=== PATIENT | male | born 1935 | race Caucasian/White ===

== ENCOUNTER 2016-04-16 09:41 | Emergency (ER) | payer MEDICARE, OTHER ==
[~2016-04-16] VITALS: Ht 144.8 cm; Wt 53.0 kg
[~2016-04-16 09:41] MED LIST: AMLO-147 PO; ASPI-664 PO; DIPH1TAB25 PO; DONE5TAB7 PO; ESOM40CA PO; FER325 PO; FOLI-49 PO; IMO2 PO; NEPH PO; RIFA550T4 PO; SITA50TA2 PO
[2016-04-16 10:06] VITALS: Ht 144.8 cm; Wt 53.0 kg
[2016-04-16] MEDS ORDERED: ONDANSETRON (ODT) 4 MG TAB ODT STA (10:29)
[2016-04-16] MEDS ORDERED: HYDROCODONE/APAP (10/325) TAB PO ONE (10:30)
[2016-04-16] MEDS ORDERED: DOCU-144 PO (11:38)
[2016-04-16] MEDS ORDERED: HYDR-902 PO (11:38)
--- NOTE | 2016-04-16 11:44 | RADRPT ---
PROCEDURE: XR Lumbar Spine. CLINICAL INDICATION: Low back pain. TECHNIQUE: 3 views of the lumbar spine are available for review COMPARISON: None available FINDINGS: There is diffuse osteopenia. There is a mild dextroscoliosis of the lumbar spine. There is an indete rminate age compression involving the superior endplate of L1. There is severe L4-5 and mild L1-4 degenerative disk disease. This is associated with disk space n arrowing, endplate sclerosis and spondylosis. The vertebral bodies are otherwise normal in minerali zation, architecture and alignment. No subluxation is demonstrated. The facet joints are unremarka ble. There is abdominal aortic vascular calcification. IMPRESSION: Diffuse osteopenia Mild dextroscoliosis. Indeterminate age compression involving the superior endplate of L1 Severe L4-5 and mild L1-4 degenerative disk disease. RPTAT: HGDB .Ariel Méndez MD, Date Time Electronically viewed and signed by .Ariel Méndez MD, on 04/16/2016 11:43 .B/
[2016-04-16 12:43] VITALS: BP 128/83; PULSE 78; RESP 18; TEMP 97.5
--- NOTE | 2016-04-16 14:44 | ERD ---
ER Documentation Chief Complaint Date/Time DATE: 04/16/16 TIME: 14:42 Chief Complaint Complains of back pain Hx of Dialysis HPI Patient is an 80-year-old male with stroke, hypertension, and diabetes who presents with back pain. The patient has had diffuse back pain for the past 3 weeks. It has lower back pain bilaterally. He has tried ibuprofen by Dr. Pepper. He had diarrhea. He has had incontinence for the past 2 years and there is been no changes. He denies fever. Upon review of old medical records this is the patient's sixth visit to the ER since 2014. He receives dialysis Wednesday, Wednesday, and Wednesday and had a full dialysis yesterday. ROS All systems reviewed and are negative except as per history of present illness. Medications Home Meds Active Scripts Docusate Sodium* (Colace*) 100 Mg Capsule, 100 MG PO TID, #30 CAP Prov:KIKI CAMPBELL MD 04/16/16 Hydrocodone/Acetaminophen ([place] 10-325 Tablet) 1 Each Tablet, 1 TAB PO Q6H Y for PAIN, #7 TAB Prov:KIKI CAMPBELL MD 04/16/16 Diphenoxylate HCl/Atropine (Diphenoxylate-Atrop 2.5-0.025) 1 Each Tablet, 1 TAB PO DAILY, #90 TAB Prov:BERT LIRIANO MD 02/01/16 Rifaximin* (Xifaxan*) 550 Mg Tablet, 550 MG PO BID, #60 TAB Prov:BERT LIRIANO MD 02/01/16 Reported Medications Multivit/Ca Carb/B Cmplx/Fa* (Estelita-Allison*) 1 Tab Tab, 1 TAB PO DAILY, TAB 01/28/16 Ferrous Sulfate* (Ferrous Sulfate*) 325 Mg Tabec, 325 MG PO BID, TAB 01/28/16 Sitagliptin* (Januvia*) 50 Mg Tablet, 50 MG PO DAILY, #30 TAB 01/28/16 Loperamide Hcl* (Loperamide Hcl*) 2 Mg Cap, 2 MG PO DAILY, CAP 01/28/16 Folic Acid* (Folic Acid*) 1 Mg Tablet, 1 MG PO DAILY, TAB 01/28/16 Esomeprazole Mag Trihydrate (Nexium) 40 Mg Capsule.dr, 40 MG PO DAILY, #30 CAP 01/28/16 Donepezil* (Donepezil*) 5 Mg Tablet, 5 MG PO DAILY, #30 TAB 01/28/16 Aspirin* (Aspirin* EC) 81 Mg Tablet.dr, 81 MG PO DAILY, TAB 01/28/16 Amlodipine Besylate* (Amlodipine Besylate*) 10 Mg Tablet, 10 MG PO DAILY, #30 TAB 01/28/16 Allergies Allergies: Coded Allergies: No Known Allergy (Verified , 01/28/16) PMhx/Soc History of Surgery: Yes (cataract surgery,right chest wall permacath) Anesthesia Reaction: No Hx Neurological Disorder: No Hx Respiratory Disorders: No Hx Cardiac Disorders: Yes (HTN, high cholesterol) Hx Psychiatric Problems: No Hx Miscellaneous Medical Probl: Yes (DM II) Hx Alcohol Use: No Hx Substance Use: No Hx Tobacco Use: Yes (30 years ago) Smoking Status: Never smoker FmHx Family History: diabetes Physical Exam Vitals Vital Signs Date Time Temp Pulse Resp B/P Pulse Ox O2 Delivery O2 Flow Rate FiO2 04/16/16 12:43 97.5 78 18 128/83 98 Room Air 04/16/16 10:06 97.5 86 20 124/84 98 Physical Exam Const: Mild distress secondary to back pain Head: Atraumatic Eyes: Normal Conjunctiva ENT: Normal External Ears, Nose and Mouth. Neck: Full range of motion..~ No meningismus. Resp: Clear to auscultation bilaterally Cardio: Regular rate and rhythm, no murmurs Abd: Soft, non tender, non distended. Normal bowel sounds Skin: No petechiae or rashes Back: No midline or flank tenderness Ext: No cyanosis, or edema Neur: Awake and alert Psych: Normal Mood and Affect Results 24 hrs Current Medications Medications (Trade) Dose Ordered Sig/Xin Route PRN Reason Start Time Stop Time Status Last Admin Dose Admin Acetaminophen/ Hydrocodone Bitart ([place] (10/325)) 1 tab ONCE ONCE PO 04/16/16 10:30 04/16/16 10:43 DC 04/16/16 10:49 Ondansetron HCl (Zofran Odt) 4 mg ONCE STAT ODT 04/16/16 10:29 04/16/16 10:43 DC 04/16/16 10:50 Procedures/MDM X-ray LS-Spine 3V Interpreted by me: Bones: No fracture, or lytic lesions, there is diffuse osteopenia Joints: No dislocation Foreign body: None Patient is an 80-year-old male who presents with back pain. At this point I doubt cauda equina syndrome, epidural abscess, or epidural hematoma. I believe outpatient management is appropriate. The patient will need to follow-up closely with Dr. Pepper. The patient was given [place] for pain and will be given a prescription for [place] and Colace. Departure Diagnosis: Primary Impression: Back pain Back pain location: low back pain Chronicity: acute Back pain laterality: bilateral Sciatica presence: without sciatica Qualified Code: M54.5 - Acute bilateral low back pain without sciatica Condition: Fair Patient Instructions: Back Pain (Acute Or Chronic) Referrals: BERT LIRIANO MD (PCP) Additional Instructions: Llame al doctor CÉSAR y sena sherry RONY PARA DENTRO DE 1-2 CAMPOS.Dgale a la secretaria que nosotros le instruimos hacer esta rony.Avise o llame si berumen condicin se empeora antes de la rony. Regresa aqui si peor o no mejor. KIKI CAMPBELL MD Apr 16, 2016 14:44
== END 2016-04-16 12:43 | disposition home or self-care (01) ==
LOC: E/R 09:41
DX: M54.5 Low back pain (principal); I10 Essential (primary) hypertension; E11.9 Type 2 diabetes mellitus without complications; Z79.84 Long term (current) use of oral hypoglycemic drugs; Z79.82 Long term (current) use of aspirin; Z87.891 Personal history of nicotine dependence
CPT/HCPCS: 72100; 93005

== ENCOUNTER 2016-05-21 11:15 | Emergency (ER) | payer MEDICARE, OTHER ==
[~2016-05-21] VITALS: Wt 60.0 kg
[~2016-05-21 11:15] MED LIST changes: +DOCU-144 PO; +HYDR-902 PO
[2016-05-21 13:10] LABS: ADD SCAN DIFF NO
[2016-05-21 13:13] LABS: BASOPHILS % 0.5 % (0.0-2.0); EOSINOPHILS # 0.3 10^3/ul (0.0-0.5); EOSINOPHILS % 3.7 % (0.0-7.0); HEMATOCRIT 32.3 % (42.0-52.0); HEMOGLOBIN 10.9 g/dl (14.0-18.0); LYMPHOCYTES # 1.5 10^3/ul (0.8-2.9); LYMPHOCYTES % 20.3 % (15.0-51.0); MEAN CORPUSCULAR HEMOGLOBIN 32.8 pg (29.0-33.0); MEAN CORPUSCULAR HGB CONC 33.7 g/dl (32.0-37.0); MEAN CORPUSCULAR VOLUME 97.3 fl (82.0-101.0); MEAN PLATELET VOLUME 10.6 fl (7.4-10.4); MONOCYTE # 0.6 10^3/ul (0.3-0.9); PLATELET COUNT 109 10^3/UL (140-415); RED BLOOD COUNT 3.32 10^6/ul (4.70-6.10); RED CELL DISTRIBUTION WIDTH 16.2 % (11.5-14.5); WHITE BLOOD COUNT 7.5 10^3/ul (4.8-10.8)
[2016-05-21 13:24] LABS: ALBUMIN 3.8 g/dl (3.3-4.9); CHLORIDE 103 mmol/L (97-110)
[2016-05-21 13:25] LABS: POTASSIUM 5.6 mmol/L (3.5-5.1); SODIUM 144 mmol/L (135-144)
[2016-05-21 13:26] LABS: INR 1.26; PROTIME 15.9 Sec (12.2-14.2); PT RATIO 1.2
[2016-05-21 13:27] LABS: ANION GAP 35 (8-16); ASPARTATE AMINO TRANSFERASE 14 IU/L (15-46); BLOOD UREA NITROGEN 93 mg/dl (7-20); CARBON DIOXIDE 12 mmol/L (21-31)
[2016-05-21 13:28] LABS: ALANINE AMINOTRANSFERASE 16 IU/L (13-69); ALKALINE PHOSPHATASE 177 IU/L (42-121); CALCIUM 7.5 mg/dl (8.4-10.2); GLUCOSE 139 mg/dl (70-220)
[2016-05-21 13:42] LABS: CREATININE 14.83 mg/dl (0.61-1.24); TROPONIN-I < 0.012 ng/ml (0.00-0.12)
[2016-05-21] MEDS ORDERED: CA GLUCONATE (GM) 10% 10ML INJ IV STA ×3 (14:13→15:27)
[2016-05-21] MEDS ORDERED: NA BICARBONATE 8.4% 50 ML SYG IV STA (14:13)
[2016-05-21] MEDS ORDERED: morphine 2 MG INJ IV ONE (14:30)
--- NOTE | 2016-05-21 14:42 | RADRPT ---
PROCEDURE: XR Chest. CLINICAL INDICATION: Chest pain TECHNIQUE: Chest AP portable. COMPARISON: 01/28/2016 FINDINGS: Left internal jugular tunnel dialysis catheter. The mediastinal structures are unremarkable. There is calcification of the thoracic aorta (consiste nt with atherosclerosis). There is mild cardiomegaly. The pulmonary vascularity is normal. The jane ng eastman are unremarkable. No consolidation is identified. The pleural spaces are unremarkable. There is diffuse osteopenia. IMPRESSION: Calcification of the thoracic aorta (consistent with atherosclerosis) Mild cardiomegaly No active intrathoracic disease RPTAT: HGDB .Ariel Méndez MD, Date Time Electronically viewed and signed by .Ariel Méndez MD, on 05/21/2016 14:41 .B/
--- NOTE | 2016-05-21 14:44 | RADRPT ---
PROCEDURE: XR right knee. CLINICAL INDICATION: Knee pain TECHNIQUE: Three views are available for review. COMPARISON: None available FINDINGS: There is diffuse osteopenia. No fractures are identified. No osseous lesions are identified. The joints are unremarkable. The soft tissues are unremarkable. There is extensive arterial vascular ca lcification. IMPRESSION: Diffuse osteopenia. Otherwise unremarkable examination RPTAT: HGDB .Ariel Méndez MD, MD Date Time Electronically viewed and signed by .Ariel Méndez MD, MD on 05/21/2016 14:44 .B/
--- NOTE | 2016-05-21 15:04 | ERD ---
ER Documentation Chief Complaint Date/Time DATE: 05/21/16 TIME: 15:01 Chief Complaint GEN WEAKNESS FOR A FEW DAYS AND BILATERAL KNEE SWELLING. NO FALL HPI This is an 81-year-old male presents to the emergency room for evaluation of generalized weakness and a right-sided knee pain and swelling. The patient was seen in the hospital 2 weeks ago and was discharged home with Motrin according to the daughter was giving history. This patient has been weak and has not gone a dialysis in the past 7 days because he has been feeling weak. This patient is able to ambulate, and he states that he only wants pain medicine for his right knee. The patient denies any trauma to the right knee that is new. He denies any chest pain, palpitations, shortness of breath or ROS All systems reviewed and are negative except as per history of present illness. Medications Home Meds Active Scripts Docusate Sodium* (Colace*) 100 Mg Capsule, 100 MG PO TID, #30 CAP Prov:KIKI CAMBPELL MD 04/16/16 Hydrocodone/Acetaminophen ([place] 10-325 Tablet) 1 Each Tablet, 1 TAB PO Q6H Y for PAIN, #7 TAB Prov:KIKI CAMPBELL MD 04/16/16 Diphenoxylate HCl/Atropine (Diphenoxylate-Atrop 2.5-0.025) 1 Each Tablet, 1 TAB PO DAILY, #90 TAB Prov:BERT LIRIANO MD 02/01/16 Rifaximin* (Xifaxan*) 550 Mg Tablet, 550 MG PO BID, #60 TAB Prov:BERT LIRIANO MD 02/01/16 Reported Medications Multivit/Ca Carb/B Cmplx/Fa* (Estelita-Allison*) 1 Tab Tab, 1 TAB PO DAILY, TAB 01/28/16 Ferrous Sulfate* (Ferrous Sulfate*) 325 Mg Tabec, 325 MG PO BID, TAB 01/28/16 Sitagliptin* (Januvia*) 50 Mg Tablet, 50 MG PO DAILY, #30 TAB 01/28/16 Loperamide Hcl* (Loperamide Hcl*) 2 Mg Cap, 2 MG PO DAILY, CAP 01/28/16 Folic Acid* (Folic Acid*) 1 Mg Tablet, 1 MG PO DAILY, TAB 01/28/16 Esomeprazole Mag Trihydrate (Nexium) 40 Mg Capsule.dr 40 MG PO DAILY, #30 CAP 01/28/16 Donepezil* (Donepezil*) 5 Mg Tablet, 5 MG PO DAILY, #30 TAB 01/28/16 Aspirin* (Aspirin* EC) 81 Mg Tablet.dr, 81 MG PO DAILY, TAB 01/28/16 Amlodipine Besylate* (Amlodipine Besylate*) 10 Mg Tablet, 10 MG PO DAILY, #30 TAB 01/28/16 Allergies Allergies: Coded Allergies: No Known Allergy (Verified , 01/28/16) PMhx/Soc History of Surgery: Yes (cataract surgery,right chest wall permacath) Anesthesia Reaction: No Hx Neurological Disorder: No Hx Respiratory Disorders: No Hx Cardiac Disorders: Yes (HTN, high cholesterol) Hx Psychiatric Problems: No Hx Miscellaneous Medical Probl: Yes (DM II) Hx Alcohol Use: No Hx Substance Use: No Hx Tobacco Use: Yes (30 years ago) Smoking Status: Former smoker Physical Exam Vitals Vital Signs Date Time Temp Pulse Resp B/P Pulse Ox O2 Delivery O2 Flow Rate FiO2 05/21/16 11:20 98.8 75 20 166/79 98 Physical Exam INITIAL VITAL SIGNS: Reviewed by me GENERAL: The patient is well developed and appropriate for usual state of health in no apparent distress HEENT: Pupils equal, round, and reactive to light. EOMI. There is no scleral icterus. NECK: C-spine is soft and supple, there is no meningismus. There is no cervical lymphadenopathy. LUNGS: Clear to auscultation bilaterally. There are no rales, wheezes or rhonchi. HEART: Regular rate and rhythm, no murmurs, clicks, rubs or gallops. ABDOMEN: Soft, non-tender, non-distended. There are bowel sounds in all four quadrants. No rebound or guarding. EXTREMITIES: There is no peripheral cyanosis or edema. No focal swelling or erythema. NEUROLOGICAL: The patient moves all four extremities with 5/5 strength. Cranial nerves II - XII are intact. Normal gait. Alert and oriented SKIN: There is no apparent rash or petechiae. HEME/LYMPHATIC: There is no evidence of excessive bruising or lymphedema. PSYCHIATRIC: The patient does not appear anxious or depressed. Result Diagram: 05/21/16 1239 05/21/16 1239 Results 24 hrs Laboratory Tests Test 05/21/16 12:39 Activated Partial Thromboplast Time 28.0Sec Alanine Aminotransferase (ALT/SGPT) 16IU/L Albumin 3.8g/dl Albumin/Globulin Ratio 0.90 Alkaline Phosphatase 177IU/L Anion Gap 35 Aspartate Amino Transf (AST/SGOT) 14IU/L Basophils # 0.010^3/ul Basophils % 0.5% Blood Urea Nitrogen 93mg/dl Calcium Level 7.5mg/dl Carbon Dioxide Level 12mmol/L Chloride Level 103mmol/L Creatinine 14.83mg/dl Direct Bilirubin 0.00mg/dl Eosinophils # 0.310^3/ul Eosinophils % 3.7% Globulin 4.20g/dl Glucose Level 139mg/dl Hematocrit 32.3% Hemoglobin 10.9g/dl INR International Normalized Ratio 1.26 Indirect Bilirubin 0.0mg/dl Lymphocytes # 1.510^3/ul Lymphocytes % 20.3% Mean Corpuscular Hemoglobin 32.8pg Mean Corpuscular Hemoglobin Concent 33.7g/dl Mean Corpuscular Volume 97.3fl Mean Platelet Volume 10.6fl Monocytes # 0.610^3/ul Monocytes % 8.0% Neutrophils # 5.010^3/ul Neutrophils % 67.0% Nucleated Red Blood Cells # 0.010^3/ul Nucleated Red Blood Cells % 0.0/100WBC Platelet Count 95864^3/UL Potassium Level 5.6mmol/L Prothrombin Time 15.9Sec Prothrombin Time Ratio 1.2 Red Blood Count 3.3210^6/ul Red Cell Distribution Width 16.2% Sodium Level 144mmol/L Total Bilirubin 0.0mg/dl Total Protein 8.0g/dl Troponin I < 0.012ng/ml White Blood Count 7.510^3/ul Current Medications Medications (Trade) Dose Ordered Sig/Xin Route PRN Reason Start Time Stop Time Status Last Admin Dose Admin Morphine Sulfate (morphine) 2 mg ONCE ONCE IV 05/21/16 14:30 05/21/16 14:31 DC Sodium Bicarbonate (Na Bicarb 8.4% Syg) 50 ml ONCE STAT IV 05/21/16 14:13 05/21/16 14:14 DC Calcium Gluconate (Ca Gluc) 1 gm ONCE STAT IV 05/21/16 14:13 05/21/16 14:14 DC Procedures/MDM EKG: Rate/Rhythm: [Normal Sinus Rhythm] QRS, ST, T-waves: [No changes consistent w/ acute ischemia] Impression: [No evidence of ischemia or arrhythmia] Chest X-ray 1V Interpreted by me: Soft Tissue: No acute abnormalities Bones: No acute abnormalities Mediastinum/Cardiac Silhouette/Lungs: Mild cardiomegaly X-ray Knee 3V Interpreted by me: Bones: [No fracture] Joints: [No dislocation] Foreign body: [None] This 81-year-old male presents to the ER for evaluation of generalized weakness. This patient is end-stage renal and has not gone to his dialysis in the past 2 sessions. He is due for dialysis tomorrow on Wednesday. I did get lab work on this patient. His potassium is 5.6. He has no EKG changes, no chest pain or palpitations. He was given calcium gluconate here in the emergency room and an ampule of bicarbonate. Chest x-ray does not reveal any fluid overload. Knee x-ray does not reveal any acute fractures. I advised the patient he has osteopenia and joint pain. He does have Motrin at home and will be discharged home with a prescription for [place] for breakthrough pain. Departure Diagnosis: Primary Impression: Right knee pain Additional Impressions: Hyperkalemia Normocytic anemia Thrombocytopenia Renal insufficiency Condition: Stable LUCIANA RODRIGUEZ DO May 21, 2016 15:04
[2016-05-21] MEDS ORDERED: HYDR-906 PO (15:05)
[2016-05-21 17:29] VITALS: BP 192/90; PULSE 88; RESP 20; TEMP 98.8
== END 2016-05-21 17:31 | disposition home or self-care (01) ==
LOC: E/R 11:15
DX: M25.561 Pain in right knee (principal); E87.5 Hyperkalemia; D64.9 Anemia, unspecified; D69.6 Thrombocytopenia, unspecified; N28.9 Disorder of kidney and ureter, unspecified; I10 Essential (primary) hypertension; E11.9 Type 2 diabetes mellitus without complications; Z79.84 Long term (current) use of oral hypoglycemic drugs; Z79.82 Long term (current) use of aspirin; Z87.891 Personal history of nicotine dependence
CPT/HCPCS: 36415; 71010; 73562; 80053; 84484; 85025; 85610; 85730; 93005; 96374; 96375; 99285; J0610; J2270

== ENCOUNTER 2016-07-17 11:40 | Inpatient (IN) | payer MEDICARE, OTHER ==
[~2016-07-17] VITALS: Ht 154.9 cm; Wt 64.0 kg
[~2016-07-17 11:40] MED LIST changes: +HYDR-906 PO
[2016-07-17 11:50] VITALS: Ht 154.9 cm; Wt 64.0 kg
[2016-07-17 12:16] LABS: ADD SCAN DIFF NO
[2016-07-17 12:17] LABS: BASOPHILS % 0.3 % (0.0-2.0); EOSINOPHILS % 0.1 % (0.0-7.0); HEMATOCRIT 28.9 % (42.0-52.0); HEMOGLOBIN 10.2 g/dl (14.0-18.0); LYMPHOCYTES # 1.3 10^3/ul (0.8-2.9); LYMPHOCYTES % 18.4 % (15.0-51.0); MEAN CORPUSCULAR HEMOGLOBIN 33.7 pg (29.0-33.0); MEAN CORPUSCULAR HGB CONC 35.3 g/dl (32.0-37.0); MEAN CORPUSCULAR VOLUME 95.4 fl (82.0-101.0); MEAN PLATELET VOLUME 10.7 fl (7.4-10.4); MONOCYTE # 0.4 10^3/ul (0.3-0.9); MONOCYTES % 5.8 % (0.0-11.0); NEUTROPHIL # 5.1 10^3/ul (1.6-7.5); NEUTROPHILS % 74.8 % (39.0-77.0); PLATELET COUNT 133 10^3/UL (140-415); RED BLOOD COUNT 3.03 10^6/ul (4.70-6.10); RED CELL DISTRIBUTION WIDTH 15.6 % (11.5-14.5); WHITE BLOOD COUNT 6.9 10^3/ul (4.8-10.8)
[2016-07-17 12:18] LABS: ADD UMIC YES; URINE BILIRUBIN (Dip) NEGATIVE (NEGATIVE); URINE BLOOD (Dip) 2+ (NEGATIVE); URINE COLOR LT. YELLOW (YELLOW); URINE GLUCOSE (Dip) NEGATIVE (NEGATIVE); URINE KETONES (Dip) NEGATIVE (NEGATIVE); URINE LEUKOCYTE ESTERASE (Dip) TRACE (NEGATIVE); URINE NITRITE (Dip) NEGATIVE (NEGATIVE); URINE TOTAL PROTEIN (Dip) 2+ (NEGATIVE); URINE UROBILINOGEN (Dip) 0.2 E.U./dL (0.1-1.0)
[2016-07-17 12:29] LABS: BACTERIA,URINE MANY
[2016-07-17 12:34] LABS: ALBUMIN 4.4 g/dl (3.3-4.9)
[2016-07-17 12:35] LABS: POTASSIUM 4.3 mmol/L (3.5-5.1)
[2016-07-17 12:37] LABS: CREATININE 6.18 mg/dl (0.61-1.24)
[2016-07-17 12:38] LABS: ALBUMIN/GLOBULIN RATIO 0.84; BILIRUBIN,INDIRECT 0.4 mg/dl (0-1.1); BILIRUBIN,TOTAL 0.4 mg/dl (0.2-1.3); CALCIUM 8.8 mg/dl (8.4-10.2); TOTAL PROTEIN 9.6 g/dl (6.1-8.1)
[2016-07-17 12:39] LABS: LACTIC ACID 1.8 mmol/L (0.5-2.2)
--- NOTE | 2016-07-17 12:39 | ERA ---
ER Documentation Chief Complaint Date/Time DATE: 07/17/16 TIME: 12:37 Chief Complaint Pt BIB for ian HARRIS from Dialysis center by RA 39. HPI Patient is an 80-year-old male with end-stage renal disease who is sent from dialysis for altered mental status. Per report the patient, who lives in a nursing home, had been refusing dialysis for the last 10 days. Today he went to dialysis because he was not feeling well. After completing dialysis, the patient became less responsive. At baseline he is interactive and verbal, although he has underlying dementia. There is no report of hypotension, fever, vomiting, respiratory difficulty. ROS All systems reviewed and are negative except as per history of present illness. Medications Home Meds Active Scripts Hydrocodone/Acetaminophen ([place] 5-325 Tablet) 1 Each Tablet, 1 TAB PO Q6H Y for PAIN, #15 TAB Prov:LUCIANA RODRIGUEZ DO 05/21/16 Docusate Sodium* (Colace*) 100 Mg Capsule, 100 MG PO TID, #30 CAP Prov:KIKI CAMPBELL MD 04/16/16 Diphenoxylate HCl/Atropine (Diphenoxylate-Atrop 2.5-0.025) 1 Each Tablet, 1 TAB PO DAILY, #90 TAB Prov:BERT LIRIANO MD 02/01/16 Rifaximin* (Xifaxan*) 550 Mg Tablet, 550 MG PO BID, #60 TAB Prov:BERT LIRIANO MD 02/01/16 Reported Medications Multivit/Ca Carb/B Cmplx/Fa* (Estelita-Allison*) 1 Tab Tab, 1 TAB PO DAILY, TAB 01/28/16 Ferrous Sulfate* (Ferrous Sulfate*) 325 Mg Tabec, 325 MG PO BID, TAB 01/28/16 Sitagliptin* (Januvia*) 50 Mg Tablet, 50 MG PO DAILY, #30 TAB 01/28/16 Loperamide Hcl* (Loperamide Hcl*) 2 Mg Cap, 2 MG PO DAILY, CAP 01/28/16 Folic Acid* (Folic Acid*) 1 Mg Tablet, 1 MG PO DAILY, TAB 01/28/16 Esomeprazole Mag Trihydrate (Nexium) 40 Mg Capsule.dr, 40 MG PO DAILY, #30 CAP 01/28/16 Donepezil* (Donepezil*) 5 Mg Tablet, 5 MG PO DAILY, #30 TAB 01/28/16 Aspirin* (Aspirin* EC) 81 Mg Tablet.dr, 81 MG PO DAILY, TAB 01/28/16 Amlodipine Besylate* (Amlodipine Besylate*) 10 Mg Tablet, 10 MG PO DAILY, #30 TAB 01/28/16 Discontinued Scripts Hydrocodone/Acetaminophen ([place] 10-325 Tablet) 1 Each Tablet, 1 TAB PO Q6H Y for PAIN, #7 TAB Prov:KIKI CAMPBELL MD 04/16/16 Allergies Allergies: Coded Allergies: No Known Allergy (Verified , 01/28/16) PMhx/Soc Past medical history: End-stage renal disease, dementia Past surgical history: Dialysis catheter Social history: Cannot obtain. History of Surgery: Yes (cataract surgery,right chest wall permacath) Anesthesia Reaction: No Hx Neurological Disorder: No Hx Respiratory Disorders: No Hx Cardiac Disorders: Yes (HTN, high cholesterol) Hx Psychiatric Problems: No Hx Miscellaneous Medical Probl: Yes (DM II, ESRD-HD) Hx Alcohol Use: No Hx Substance Use: No Hx Tobacco Use: Yes (30 years ago) Smoking Status: Current every day smoker FmHx Family History: No coronary disease, No diabetes Physical Exam Vitals Vital Signs Date Time Temp Pulse Resp B/P Pulse Ox O2 Delivery O2 Flow Rate FiO2 07/17/16 11:50 96.8 90 16 170/94 97 Physical Exam Const: Lethargic, nonverbal Head: Atraumatic Eyes: Normal Conjunctiva, no pallor, no icterus ENT: Normal External Ears, Nose and Mouth. Tacky mucous membranes Neck: Full range of motion..~ No meningismus. Resp: Clear to auscultation bilaterally, left basilar rales Cardio: Regular rate and rhythm, no murmurs Abd: Soft, non tender, non distended. Normal bowel sounds Skin: No petechiae or rashes Back: No midline or flank tenderness Ext: No cyanosis, or edema Neur: Awake, lethargic, nonverbal. No facial droop. Patient moves 4 extremities, further evaluation limited by mental status. Psych: Normal Mood and Affect Result Diagram: 07/17/16 1205 07/17/16 1205 Results 24 hrs Laboratory Tests Test 07/17/16 12:05 White Blood Count 6.910^3/ul Red Blood Count 3.0310^6/ul Hemoglobin 10.2g/dl Hematocrit 28.9% Mean Corpuscular Volume 95.4fl Mean Corpuscular Hemoglobin 33.7pg Mean Corpuscular Hemoglobin Concent 35.3g/dl Red Cell Distribution Width 15.6% Platelet Count 69014^3/UL Mean Platelet Volume 10.7fl Neutrophils % 74.8% Lymphocytes % 18.4% Monocytes % 5.8% Eosinophils % 0.1% Basophils % 0.3% Nucleated Red Blood Cells % 0.0/100WBC Neutrophils # 5.110^3/ul Lymphocytes # 1.310^3/ul Monocytes # 0.410^3/ul Eosinophils # 0.010^3/ul Basophils # 0.010^3/ul Nucleated Red Blood Cells # 0.010^3/ul Prothrombin Time 16.3Sec Prothrombin Time Ratio 1.3 INR International Normalized Ratio 1.30 Activated Partial Thromboplast Time Pending Urine Color LT. YELLOW Urine Clarity CLEAR Urine pH 6.0 Urine Specific [place] 1.020 Urine Ketones NEGATIVE Urine Nitrite NEGATIVE Urine Bilirubin NEGATIVE Urine Urobilinogen 0.2 E.U./dL Urine Leukocyte Esterase TRACE Urine Microscopic RBC 5-10/HPF Urine Microscopic WBC 10-25/HPF Urine Epithelial Cells FEW Urine Bacteria MANY Urine Yeast MODERATE Urine Hemoglobin 2+ Urine Glucose NEGATIVE% Urine Total Protein 2+ Sodium Level 136mmol/L Potassium Level 4.3mmol/L Chloride Level 91mmol/L Carbon Dioxide Level 26mmol/L Anion Gap 23 Blood Urea Nitrogen 46mg/dl Creatinine 6.18mg/dl Glucose Level 89mg/dl Lactic Acid Level 1.8mmol/L Calcium Level 8.8mg/dl Total Bilirubin 0.4mg/dl Direct Bilirubin 0.00mg/dl Indirect Bilirubin 0.4mg/dl Aspartate Amino Transf (AST/SGOT) 42IU/L Alanine Aminotransferase (ALT/SGPT) 69IU/L Alkaline Phosphatase 341IU/L Ammonia < 9umol/l Troponin I 0.054ng/ml Total Protein 9.6g/dl Albumin 4.4g/dl Globulin 5.20g/dl Albumin/Globulin Ratio 0.84 Current Medications Medications (Trade) Dose Ordered Sig/Xin Route PRN Reason Start Time Stop Time Status Last Admin Dose Admin Ceftriaxone Sodium (Rocephin) 50 ml @ 100 mls/hr ONCE ONCE IVPB 5/12/17 13:30 07/17/16 13:59 Ondansetron HCl (Zofran Inj) 4 mg ER BRIDGE PRN IV NAUSEA AND/OR VOMITING 07/17/16 14:00 07/18/16 13:59 UNV Acetaminophen (Tylenol Tab) 650 mg ER BRIDGE PRN PO MILD PAIN/FEVER 07/17/16 14:00 07/18/16 13:59 UNV Morphine Sulfate (morphine) 4 mg ONCE STAT IV 07/17/16 13:39 07/17/16 13:40 UNV Ondansetron HCl (Zofran Inj) 4 mg ONCE STAT IV 07/17/16 13:39 07/17/16 13:40 UNV Procedures/MDM EKG read by me: Time 1214, rate 91 Rhythm: Normal sinus [place]: Normal Intervals: Incomplete left bundle branch block, prolonged QTC ST-T waves: Nonspecific ST-T wave changes Ectopy: No Q-waves: No Impression: Incomplete left bundle branch block with nonspecific ST-T wave change MDM: Patient is an 80-year-old male with end-stage renal disease who presents with altered mental status from dialysis. The patient was noted to be more lethargic at dialysis and not speaking. The patient does have underlying history of dementia. CT scan demonstrated a subacute parietal infarction with questionable petechial hemorrhagic conversion. Patient has no identifiable focal neurologic deficit. According to the daughter, the patient has had alteration of mental status for at least several days, which was attributed to patient refusing dialysis. Patient is not a candidate for TPA given unclear timing of onset. I will withhold aspirin given the petechial hemorrhage. There is no indication for emergent neurosurgical consult. Patient is also found to have a urinary tract infection. Urine culture was sent, and the patient was given IV ceftriaxone. There is no evidence of sepsis. Patient will be admitted to Dr. Pepper for further workup and treatment. Chest x-ray suggest ongoing volume overload, and patient may require further dialysis as an inpatient. Departure Diagnosis: Primary Impression: Altered level of consciousness Additional Impressions: Stroke Urinary tract infection End stage renal disease Condition: Stable RAHEEM GARCIA MD July 17, 2016 12:39
[2016-07-17 12:42] LABS: PROTIME 16.3 Sec (12.2-14.2); PT RATIO 1.3
--- NOTE | 2016-07-17 12:42 | RADRPT ---
PROCEDURE: XR Chest. CLINICAL INDICATION: Altered mental status. TECHNIQUE: Single frontal view of the chest was obtained. COMPARISON: Chest x-ray 05/21/2016 02:00 p.m. FINDINGS: The soft tissues are normal. There are degenerative osteophytes in the thoracic spine. The heart i s enlarged. The cardiomediastinal silhouette and hilar structures are normal. The pulmonary vascula ture is increased. There are vascular calcifications in the aortic arch. There are bilateral perihi lar infiltrates extending toward the periphery of the lungs which worsened as compared to 05/21/2016 there are bilateral pleural effusions with atelectasis in the medial aspect of the the left lower lobe. IMPRESSION: 1. Cardiomegaly with congestive heart failure and interstitial pulmonary edema consistent with CHF. 2. Bilateral pleural effusions. 3. Perma-Cath entering from a left internal jugular approach with its tip in the superior vena cava . 4. Atherosclerotic vascular disease. 5. Osteoarthritis of the thoracic spine. RPTAT:AAJJ Physician Andrea Date Time Electronically viewed and signed by Physician Andrea on 07/17/2016 12:42 JM/
[2016-07-17 12:43] LABS: AMMONIA < 9 umol/l (9-30)
[2016-07-17 12:49] LABS: TROPONIN-I 0.054 ng/ml (0.00-0.12)
--- NOTE | 2016-07-17 13:00 | RADRPT ---
PROCEDURE: CT Brain without contrast. CLINICAL INDICATION: Altered mental status TECHNIQUE: A CT of the brain was performed on a multidetector CT scanner utilizing axial sections from the skull base through the vertex without contrast. Images were reviewed on a high-resolution [facility] workstation. Exam CTDI = 44.97 x2 mGy and the DLP = 810.25 mGy-cm. One or more of the following dose reduction techniques were used: Automated exposure control Adjustment of the mA and/or kV according to patient size. Use of iterative reconstruction technique. COMPARISON: None available FINDINGS: Mild diffuse cerebral and cerebellar atrophy is present. There is proportionate dilatation of the v entricular system and sulci in a symmetric fashion. There is prominence of the extraaxial spaces sec ondary to atrophy. There is no evidence of intracranial hemorrhage, mass effect or midline shift. Th ere is an area of hypoattenuation in the left parietal lobe with gyriform hyperdensity. No abnormal intra-axial or extra-axial fluid collections are seen. The density of the brain is normal and the g ray/white matter differentiation is well preserved. Mild patchy diffuse deep white matter microangi opathic ischemic change is seen. The osseous structures are unremarkable. Paranasal sinuses are clear. Vascular calcifications are identified. IMPRESSION: 1. No acute intracranial hemorrhage, mass effect or midline shift. 2. An area of hypoattenuation in the inferior left parietal lobe with gyriform hyperdense material likely representing subacute infarct with laminar necrosis or petechial hemorrhagic conversion. Rec ommend MRI brain with contrast for further evaluation. 3. Mild generalized atrophy. Mild microangiopathic ischemic change. 4. Intracranial atherosclerosis. RPTAT: BB .Cole Stack MD, Date Time Electronically viewed and signed by .Cole Stack MD, on 07/17/2016 13:00 .O/
[2016-07-17] MEDS ORDERED: CEFTRIAXONE 2 GM/50 ML (PMX) 50 ML IVPB ONE (13:30)
[2016-07-17] MEDS ORDERED: morphine 4 MG/ML VIAL IV STA (13:39)
[2016-07-17] MEDS ORDERED: ONDANSETRON 4 MG INJ IV STA (13:39)
[2016-07-17] MEDS ORDERED: ACETAMINOPHEN 325 MG TAB PO PRN ×2 (14:00→18:00)
[2016-07-17] MEDS ORDERED: ONDANSETRON 4 MG INJ IV PRN (14:00)
[2016-07-17 14:18] LABS: PARTIAL THROMBOPLASTIN TIME > 180.0 Sec (25.0-35.0)
[2016-07-17 14:30] VITALS: TEMP 97.4
[2016-07-17 17:00] VITALS: BP 153/74; PULSE 65; RESP 18
[2016-07-17 17:03] VITALS: PULSE 88
[2016-07-17] MEDS ORDERED: NACL 0.9% 3 ML SYG IV SCH (18:00)
[2016-07-17] MEDS: ONDANSETRON 4 MG INJ IV PRN (18:25)
--- NOTE | 2016-07-17 18:27 | HP ---
DATE OF ADMISSION: 07/17/2016 REASON FOR ADMISSION: The patient was admitted today from the emergency room after he had altered mental status in one of the dialysis centers. HISTORY OF PRESENT ILLNESS: This is an 80-year-old male, well known to me, with end-stage renal disease V, was admitted after dialysis for altered mental status. Per report for this patient, he lives in a [facility] and he was refusing dialysis for 10 days. His daughter reported that he has history of noncompliance, not having dialysis sometimes, but today he went to dialysis and during dialysis he did not feel well. The nurses reported he did not respond well. After completing dialysis, the patient became less responsive and he has a baseline as interactive and verbal, although he has underlying dementia. The patient denied any pain; however, he is a very poor historian. PAST MEDICAL HISTORY: The patient has end-stage renal disease stage V, dialysis dependent with catheter left chest. History of gastroenteritis. History of anemia, uremia, dementia. He also has a history of hypertension, high cholesterol, diabetes mellitus. ALLERGIES: NEGATIVE. FAMILY AND SOCIAL HISTORY: The patient lives at a chcf, but he has a daughter who is conservator above him. The patient is still smoking, he is a current every day smoker.. REVIEW OF SYSTEMS: The patient is a poor historian. He cannot answer the questions. He is very lethargic. MEDICATIONS: 1. Hydrocodone/acetaminophen 5/325 one tablet p.o. q.8 hours as needed for pain. 2. Docusate sodium 100 mg 3 times a day. 3. mvi 1 tablet daily. 4. Rifaximin 550 mg b.i.d. 5. Multivitamin 1 tablet once a day. 6. Ferrous sulfate 325 mg twice a day. 7. Januvia 50 mg once a day. 8. Loperamide 2 mg as needed once a day. 9. Folic acid 2 mg once a day. 10. Nexium 40 mg once a day. 11. Donepezil 5 mg once a day. 12. Aspirin 81 mg once a day. 13. Amlodipine 10 mg once a day. PAST SURGICAL HISTORY: He had cataract surgery, right chest wall PermCath. PHYSICAL EXAMINATION: VITAL SIGNS: Blood pressure 160/84, temperature 97.9, pulse 88, 97, respirations 16, and he is on nasal cannula 2 L/minute. GENERAL: A thin looking male awake, alert, but confused and talking noncomprehensive, unable to answer questions. HEENT: Head is atraumatic, normocephalic. Pupils are equal, reactive to light. The patient has very pale conjunctivae, no icterus. NECK: Supple, no thyromegaly, no lymphadenopathy. LUNGS: Lungs are not clear. They have scattered rhonchi and they are decreased bilaterally. HEART: S1, S2. The patient is going to be connected to monitor. ABDOMEN: Soft, nondistended. Bowel sounds are present. No masses. EXTREMITIES: No cyanosis, no clubbing, no edema. LABORATORY DATA: Showed WBC 6.9, hemoglobin 10.2, hematocrit 28.9. Chemistry shows sodium 136, potassium 4.3, chloride 91, anion gap 23, BUN 46, creatinine 6.18. Alkaline phosphatase 241. IMPRESSION 1. End-stage renal disease, missed hemodialysis. 2. Altered level of consciousness. Dr. Flaherty was called. 3. Congestive heart failure with possible underlying pneumonia. The patient has sputum; however, a chest x-ray is with some cardiologic changes. 4. Uremia. The patient will require dialysis in hospital. 5. Anemia more likely possible to chronic renal disease. 6. History of colitis. 7. History of gastroenteritis. 8. Dementia. PLAN: 1. At this point, we are going to put the patient n.p.o. We are going to call Dr. Flaherty to check his CT scan of the brain. He has some changes that are more likely hemorrhagic stroke, the date of onset is unknown. 2. We are going to call Dr. Walton for the cardiac evaluation. The patient has underlying congestive heart failure. 3. We going to continue hemodialysis tomorrow. Today was done. 4. Deep venous thrombosis prophylaxis. 5. GI prophylaxis with Protonix. 6. Accu-Chek with mild scale coverage. 7. Antibiotics prophylactic. 8. Nursing care for the thin skin. Dictated By: DANNY CRAWLEY EXERCISE TEACHER for KAREN CASTLE MD, AM/ASHUTOSH Conf#: [id number] DID#: [id number] MTDD
[2016-07-17] MEDS: HYDROmorphONE 1 MG/ML SYG IV PRN (18:48)
--- NOTE | 2016-07-17 18:49 | CONS ---
DATE OF ADMISSION: 07/17/2016 DATE OF CONSULTATION: 07/17/2016 CARDIOLOGY CONSULTATION REASON FOR CONSULTATION: Hypertension, uncontrolled, abnormal electrocardiogram, assess for acute c oronary syndrome. REQUESTING PHYSICIAN: Dr. Alec Castle HISTORY OF PRESENT ILLNESS: Mr. Yeung is a very pleasant 80-year-old male with a history o f end-stage renal disease on hemodialysis, hypertension, dementia, dyslipidemia, and diabetes mellit us who presented with altered mental state, generalized weakness after missing hemodialysis last wee k. Upon arrival, temperature 96.8, blood pressure 170/94, pulse 90, respirations 16, saturating 97% . Patient's labs showed white count 6.9, hemoglobin 10.2, platelet count 133. Sodium 136, potassiu m 4.3, creatinine was 6.1, BUN of 46. Troponin negative. AST 14, ALT 69, albumin 4.4. INR 1.3. U A positive. The patient underwent a chest x-ray revealing cardiomegaly with congestive heart failur e and ____ pulmonary edema consistent with congestive heart failure, bilateral pleural effusions, at herosclerotic vascular disease, degenerative joint disease of spine. A head CT revealed no acute in tracranial hemorrhage, an area of hypoattenuation in the inferior left lobe, likely representing sub acute infarct, mild generalized atrophy, intracranial atherosclerosis. The patient's EKG revealed n ormal sinus rhythm at 91, normal axis, nonspecific ST-T wave abnormalities diffusely. The patient s ubsequently has been admitted to the floor, and since admit to floor, denies chest pain, appears con fused, has ongoing elevated systolic blood pressure. PAST MEDICAL HISTORY: As above in HPI. MEDICATIONS CURRENTLY IN HOSPITAL: 1. Ceftriaxone IV daily. 2. Tylenol p.r.n. MEDICATIONS PRIOR TO ADMIT: 1. Rifaximin 550 mg p.o. b.i.d. 2. Aricept 5 mg daily. 3. Ferrous sulfate 325 mg daily. 4. Norvasc 10 mg daily. 5. Aspirin 81 mg daily. 6. Colace p.r.n. 7. Nexium 40 mg daily. 8. Folic acid 1 mg daily. 9. RenaVite daily. 10. Januvia 50 mg daily. ALLERGIES: NO KNOWN DRUG ALLERGIES. SOCIAL HISTORY: No tobacco, ETOH, or illicit drug use. FAMILY HISTORY: No history of sudden cardiac or early CAD. REVIEW OF SYSTEMS: As above in HPI. CONSTITUTIONAL: No fevers, chills. PULMONARY: No current shortness of breath. CARDIOVASCULAR: No current chest pain. GASTROINTESTINAL: No vomiting. GENITOURINARY: End-stage renal disease. PSYCHIATRIC: No documented psych history. NEUROLOGIC: Dementia, altered mental state. CARDIOVASCULAR: Hypertension, congestive heart failure. ENDOCRINE: Diabetes mellitus. PHYSICAL EXAMINATION: VITAL SIGNS: Temperature of 97.9, blood pressure 160/84, pulse 86, respirations 16, temperature 97% on 2 liters. GENERAL: The patient is alert, awake, appears somewhat confused, somewhat lethargic. NECK: JVP approximately 9 to 10 cm water. CHEST: Decreased breath sounds at bases bilaterally with bibasilar crackles. HEART: Regular rate and rhythm. Normal S1, S2, I/ systolic murmur, nondisplaced PMI. ABDOMEN: Positive bowel sounds, soft. EXTREMITIES: No pitting edema, 1+ pulses bilaterally, posterior tibial. LABORATORY DATA: As above in HPI. No further labs for my review at this time. IMAGING STUDIES: As above in HPI. No further imaging studies for my review at this time. ECG: As above in HPI. No further electrocardiograms for my review at this time. IMPRESSION: 1. Congestive heart failure exacerbation by chest x-ray, question systolic versus diastolic, likely acute on chronic, in the setting of end-stage renal disease, missing dialysis. 2. Hypertension, uncontrolled. 3. Abnormal electrocardiogram with nonspecific ST-T wave abnormalities. Assess for acute coronary syndrome. 4. End-stage renal disease on hemodialysis, status post 1-week of missed dialysis sessions. 5. Altered mental state/encephalopathy. 6. History of dementia. 7. Anemia. 8. Coagulopathy, mild. RECOMMENDATIONS: 1. At this time, would maintain the patient on telemetry monitoring to follow the rhythm and rate c ontrol closely. 2. Would complete a rule out for myocardial infarction to ensure that the patient's EKG abnormaliti es are chronic in nature and not due to any recent acute coronary syndromes and therefore send CK, C K-MB, troponins q. 6 x3 in the setting of renal failure. 3. We would resume the patient's baseline aspirin for prophylaxis against further cardiovascular ev ents or cerebrovascular events. 4. Possible cerebrovascular accident, subacute by head CT. 5. Coagulopathy, mild. RECOMMENDATIONS: 1. At this time, would maintain the patient on telemetry monitoring to follow rhythm and rate close ly. 2. Would continue to check serial EKGs to assess for any significant ongoing changes. EKG in the m orning, EKG for any complaints of chest pain or change in rhythm. 3. We will complete a rule out for myocardial infarction to ensure this patient's EKG abnormalities are chronic in nature and not due to any recent acute coronary syndromes such as acute myocardial i nfarction and therefore send CK, CK-MB, troponins q. 6 x3. 4. Continue the patient's aspirin for prophylaxis against cardiovascular events. 5. Resume the patient's baseline Norvasc for control of blood pressure with probable need for addit ional antihypertensives and therefore, given the possible heart failure with EKG abnormalities, we w ill initiate beta jasvir and use p.r.n. IV push hydralazine for further blood pressure lowering acu tely as necessary. 6. Check a 2D echocardiogram to further assess patient's ejection fraction, wall motion, and any ma eva valve bodies. Check a fasting lipid panel for general risk stratification and initiate lipid-lo wering medication as necessary. 7. Hemodialysis for volume removal. 8. Consider further evaluation of the patient's stroke with neurology and MRI as necessary. Would check a urine culture and continue the patient's antibiotic therapy following up closely. Thank you for allowing me to take part in the care of this patient. I will continue to follow along very closely with you. Further recommendations will be made as the patient progresses through [facility] clinical course. Dictated By: HARSHIL PINEDA/ASHUTOSH Conf#: [id number] DID#: [id number] CC: ALEC CASTLE MD;*EndCC*
[2016-07-17] MEDS: DEXTROSE 5%-0.45% NACL 1,000 ML IV SCH (19:24)
[2016-07-17] MEDS ORDERED: DEXTROSE 50% 50 ML SYRINGE IV PRN ×2 (19:30)
[2016-07-17] MEDS ORDERED: GLUCOSE GEL 15 GRAM TUBE PO PRN ×2 (19:30)
[2016-07-17] MEDS ORDERED: HYDROCODONE/APAP (5/325) TAB PO PRN (19:30)
[2016-07-17] MEDS ORDERED: GLUCAGON 1 MG INJ IM PRN (19:30)
[2016-07-17] MEDS ORDERED: GLUCOSE GEL 15 GRAM TUBE BUCCAL PRN (19:30)
[2016-07-17 20:00] VITALS: BP 162/83; RESP 20
[2016-07-17 20:15] VITALS: PULSE 84
[2016-07-17] MEDS ORDERED: AMLODIPINE 5 MG TAB PO SCH (21:00)
[2016-07-17] MEDS: INSULIN ASPART [NOVOLOG] 3 ML PEN SC SCH (21:00)
[2016-07-17] MEDS: DOCUSATE SODIUM 100 MG CAP PO SCH (21:00)
[2016-07-17] MEDS: FERROUS SULFATE (EC) 325 MG TAB PO SCH (21:00)
[2016-07-18] VITALS (18 sets, daily range): BP systolic 78–157; BP diastolic 34–88; PULSE 72–89; RESP 17–20
[2016-07-18] MEDS: HYDROmorphONE 1 MG/ML SYG IV PRN ×3 (00:05→03:20)
[2016-07-18 01:52] LABS: CK-MB 5.02 ng/ml (0.0-2.4)
[2016-07-18 01:55] LABS: TROPONIN-I 0.172 ng/ml (0.00-0.12)
[2016-07-18] MEDS: ONDANSETRON 4 MG INJ IV PRN ×2 (03:48→10:03)
[2016-07-18] MEDS: INSULIN ASPART [NOVOLOG] 3 ML PEN SC SCH ×6 (04:00→21:00)
[2016-07-18] MEDS: DEXTROSE 5%-0.45% NACL 1,000 ML IV SCH (04:14)
--- NOTE | 2016-07-18 04:58 | CONS ---
DATE OF ADMISSION: 07/17/2016 DATE OF CONSULTATION: REFERRING PHYSICIAN: Dr. Castle. Thank you for asking me to see the patient with you. HISTORY OF PRESENT ILLNESS: The patient is an 80-year-old male admitted to [facility]. The patient has end-stage renal disease which he missed hemodialysis for the last 2 weeks. T he patient admitted with decreased mini mental status, lack of communication in which I get a call a bout him. ADMISSION MEDICATIONS: The patient's medications upon admission which includes: 1. Hydrocodone 5/325 mg once a day. 2. Colace 100 mg twice a day as needed. 3. Multiple vitamin one tablet every day. 4. Ferrous sulfate 325 mg once a day. 5. Januvia 50 mg once a day. 6. Loperamide 2 mg as needed once a day. 7. Folic acid 2 mg once a day. 8. Nexium 40 mg once a day. 9. Aricept 5 mg once a day. 10. Aspirin 81 mg once a day. 11. Amlodipine 10 mg once a day. PHYSICAL EXAMINATION: GENERAL: On exam today, the patient looks confused, does not follow second or third-step commands. He can follow simple commands. CRANIAL NERVES: Cranial nerve II: Pupils equal on both sides, reactive to light. Cranial nerves I II, IV and : Extraocular muscles intact without nystagmus. Cranial nerve V: Equal sensation to face. Cranial nerve VII: face. Cranial nerve VIII: Decreased hearing bilaterally. Cranial nerves IX and X: Elevates palate. Cranial nerve XI: Elevates shoulder 5/5. Cranial nerve XII: With straight tongue. 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 Sensation decreased for glove and sock area for light touc h and temperature. COORDINATION: Awhbhd-nv-bzuj test could not assess. HEART: Regular rate and rhythm. LUNGS: Equal breath sounds. ABDOMEN: Soft, relaxed, nondistended. No tenderness. ASSESSMENT AND PLAN 1. The patient is an 80-year-old with decreased mini mental status. The patient has an abnormal CA T scan. I am going to order for him MRI for more evaluation and treatment. 2. Possible underlying seizure. Follow up the patient with electroencephalogram for more evaluatio n and treatment. 3. Acute encephalopathy, probably secondary to renal failure in which the patient missed multiple h emodialysis's in the last week. 4. Keep the patient under deep venous thrombosis prophylaxis as well as decubitus ulcer prophylaxis . Again, thank you for asking me to see the patient with you. Dictated By: ANA MARÍA SANTIAGO/ASHUTOSH Conf#: [id number] DID#: [id number] CC: KAREN CASTLE MD;*EndCC*
[2016-07-18 08:04] LABS: ADD SCAN DIFF NO
[2016-07-18 08:10] LABS: BASOPHILS % 0.1 % (0.0-2.0); HEMATOCRIT 29.1 % (42.0-52.0); HEMOGLOBIN 9.8 g/dl (14.0-18.0); LYMPHOCYTES # 1.1 10^3/ul (0.8-2.9); LYMPHOCYTES % 16.2 % (15.0-51.0); MEAN CORPUSCULAR HEMOGLOBIN 32.8 pg (29.0-33.0); MEAN CORPUSCULAR HGB CONC 33.7 g/dl (32.0-37.0); MEAN CORPUSCULAR VOLUME 97.3 fl (82.0-101.0); MONOCYTE # 0.4 10^3/ul (0.3-0.9); MONOCYTES % 6.4 % (0.0-11.0); NEUTROPHIL # 5.3 10^3/ul (1.6-7.5); NEUTROPHILS % 76.7 % (39.0-77.0); PLATELET COUNT 130 10^3/UL (140-415); RED BLOOD COUNT 2.99 10^6/ul (4.70-6.10); RED CELL DISTRIBUTION WIDTH 15.8 % (11.5-14.5); WHITE BLOOD COUNT 6.9 10^3/ul (4.8-10.8)
[2016-07-18 08:41] LABS: POTASSIUM 5.2 mmol/L (3.5-5.1)
[2016-07-18 08:43] LABS: CHOL/HDL RATIO 2.3 RATIO; CREATININE 8.4 mg/dl (0.61-1.24)
[2016-07-18 08:44] LABS: CALCIUM 8.2 mg/dl (8.4-10.2)
[2016-07-18 08:51] LABS: CK-MB 4.65 ng/ml (0.0-2.4); TROPONIN-I 0.181 ng/ml (0.00-0.12)
[2016-07-18] MEDS ORDERED: DIPHENOXYLATE/ATROPINE TAB PO PRN (09:00)
[2016-07-18] MEDS: MULTIVIT/CA CARB/B CMPLX/FA TAB PO SCH (10:06)
[2016-07-18] MEDS: DONEPEZIL 5 MG TAB PO SCH (10:06)
[2016-07-18] MEDS: FOLIC ACID 1 MG TAB PO SCH (10:07)
[2016-07-18] MEDS: DOCUSATE SODIUM 100 MG CAP PO SCH ×3 (10:07→22:07)
[2016-07-18] MEDS: AMLODIPINE 10 MG TAB PO SCH (10:07)
[2016-07-18] MEDS: FERROUS SULFATE (EC) 325 MG TAB PO SCH ×2 (10:07→22:07)
[2016-07-18 12:59] LABS: CK-MB 4.51 ng/ml (0.0-2.4); TROPONIN-I 0.197 ng/ml (0.00-0.12)
[2016-07-18] MEDS: CEFTRIAXONE 1 GM/50 ML (PMX) 50 ML IV SCH (13:15)
--- NOTE | 2016-07-18 15:19 | CONS ---
Date/Time of Note Date/Time of Note DATE: 07/18/16 TIME: 15:15 Assessment/Plan Assessment/Plan Additional Assessment/Plan Congestive heart failure exacerbation Bilateral Pleural Effusion Subacute Infarct Hypertension End-stage renal disease on hemodialysis Altered mental state/encephalopathy. Dementia. Anemia. Hemodynamically stable Heart failure clinically compensated Continue Norvasc Started on Coreg Continue Insulin Continue Antibiotics Continue Aricept HD as scheduled Awaiting MRI of Brain Consultation Date/Type/Reason Admit Date/Time July 17, 2016 at 13:41 Past Surgical History Past Surgical Hx: other Social History Smoking Status: Unknown if ever smoked Exam/Review of Systems Vital Signs Vitals Vital Signs Date Time Temp Pulse Resp B/P Pulse Ox O2 Delivery O2 Flow Rate FiO2 07/18/16 14:50 72 07/18/16 13:20 20 07/18/16 11:51 98.4 151/84 95 07/17/16 17:00 Nasal Cannula 2.0 Intake and Output 07/17/16 07/17/16 07/18/16 15:00 23:00 07:00 Intake Total 50 ml Balance 50 ml Exam Constitutional: other (lethargic) Head: atraumatic, normocephalic Respiratory: diminished breath sounds Cardiovascular: regular rate and rhythm Gastrointestinal: nl liver, spleen, non-tender, soft Extremities: other (Trace pedal edema) Results Result Diagram: 07/18/1671607/18/16716 Results 24 hrs Laboratory Tests Test 07/17/16 19:10 07/18/16 01:02 07/18/16 03:29 07/18/16 06:56 Bedside Glucose 104 93 96 Creatine Kinase 86 Creatine Kinase Index 5.8 Creatinine Kinase MB (Mass) 5.02 H Troponin I 0.172 *H Test 07/18/16 07:17 07/18/16 08:26 07/18/16 11:44 07/18/16 11:46 White Blood Count 6.9 Red Blood Count 2.99 L Hemoglobin 9.8 L Hematocrit 29.1 L Mean Corpuscular Volume 97.3 Mean Corpuscular Hemoglobin 32.8 Mean Corpuscular Hemoglobin Concent 33.7 Red Cell Distribution Width 15.8 H Platelet Count 130 L Mean Platelet Volume 11.0 H Neutrophils % 76.7 Lymphocytes % 16.2 Monocytes % 6.4 Eosinophils % 0.0 Basophils % 0.1 Nucleated Red Blood Cells % 0.0 Neutrophils # 5.3 Lymphocytes # 1.1 Monocytes # 0.4 Eosinophils # 0.0 Basophils # 0.0 Nucleated Red Blood Cells # 0.0 Sodium Level 136 Potassium Level 5.2 H Chloride Level 91 L Carbon Dioxide Level 24 Anion Gap 26 H Blood Urea Nitrogen 65 H Creatinine 8.40 #H Glucose Level 104 Calcium Level 8.2 L Creatine Kinase 79 75 Creatine Kinase Index 5.9 6.0 Creatinine Kinase MB (Mass) 4.65 H 4.51 H Troponin I 0.181 *H 0.197 *H B-Type Natriuretic Peptide 90510 H Triglycerides Level 112 Cholesterol Level 158 LDL Cholesterol, Calculated 68 HDL Cholesterol 68 Cholesterol/HDL Ratio 2.3 Bedside Glucose 105 100 Medications Medications Current Medications Acetaminophen 650 mg 650 mg Q6H PRN PO PAIN LEVEL 1-3 OR FEVER; Start 07/17/16 at 18:00 Ceftriaxone Sodium (Rocephin) 50 ml @ 100 mls/hr Q24H IV Last administered on 07/18/16 13:15; Admin Dose 100 MLS/HR; Start 07/18/16 at 14:00 Hydralazine HCl (Apresoline) 10 mg Q4H PRN IV sbp>170; Start 07/17/16 at 18:30 Ondansetron HCl (Zofran Inj) 4 mg Q6H PRN IV NAUSEA AND/OR VOMITING Last administered on 07/18/16 10:03; Admin Dose 4 MG; Start 07/17/16 at 18:30 Hydromorphone HCl (Dilaudid) 0.5 mg Q4H PRN IV PAIN Last administered on 03:20; Admin Dose 0.5 MG; Start 07/17/16 at 19:00 Insulin Aspart NOVOLOG *MILD* ALGORI... Q4 SC ; Start 07/17/16 at 21:00 Dextrose/Sodium Chloride (D5-1/2ns) 1,000 ml @ 40 mls/hr Q24H IV Last administered on 07/18/16 04:14; Admin Dose 40 MLS/HR; Start 07/17/16 at 19:00 Miscellaneous Information 1 ea NOTE XX ; Start 07/17/16 at 19:30 Glucose (Glutose) 15 gm Q15M PRN PO DECREASED GLUCOSE; Start 07/17/16 at 19:30 Glucose (Glutose) 22.5 gm Q15M PRN PO DECREASED GLUCOSE; Start 07/17/16 at 19: 30 Dextrose (D50w Syringe) 25 ml Q15M PRN IV DECREASED GLUCOSE; Start 07/17/16 at 19:30 Dextrose (D50w Syringe) 50 ml Q15M PRN IV DECREASED GLUCOSE; Start 07/17/16 at 19:30 Glucagon (Glucagen) 1 mg Q15M PRN IM DECREASED GLUCOSE; Start 07/17/16 at 19:30 Glucose (Glutose) 15 gm Q15M PRN BUCCAL DECREASED GLUCOSE; Start 07/17/16 at 19 :30 Amlodipine Besylate (Norvasc) 10 mg DAILY PO Last administered on 07/18/16 10: 07; Admin Dose 10 MG; Start 07/18/16 at 09:00 Diphenoxylate HCl/ Atropine (Lomotil) 1 tab DAILY PRN PO DIARRHEA; Start at 09:00 Docusate Sodium (Colace) 100 mg TID PO Last administered on 07/18/16 10:07; Admin Dose 100 MG; Start 07/17/16 at 21:00 Donepezil HCl (Aricept) 5 mg DAILY PO Last administered on 07/18/16 10:06; Admin Dose 5 MG; Start 07/18/16 at 09:00 Ferrous Sulfate (Ferrous Sulfate (Ec)) 325 mg BID PO Last administered on 10:07; Admin Dose 325 MG; Start 07/17/16 at 21:00 Folic Acid (Folic Acid) 1 mg DAILY PO Last administered on 07/18/16 10:07; Admin Dose 1 MG; Start 07/18/16 at 09:00 Acetaminophen/ Hydrocodone Bitart ([place] (5/325)) 1 tab Q6H PRN PO PAIN; Start 07/17/16 at 19:30 Multivit/Ca Carb/ B Cmplx/FA/Prenat (Estelita-Allison) 1 tab DAILY PO Last administered on 07/18/16 10:06; Admin Dose 1 TAB; Start 07/18/16 at 09:00 GAUDENCIO FRANKLIN M.D. July 18, 2016 15:19
[2016-07-18] MEDS ORDERED: HEPARIN 1000 UNITS/ML 10 ML INJ CATHETER ONE (15:30)
[2016-07-18] MEDS ORDERED: LORAZEPAM 2 MG INJ IV ONE (15:30)
--- NOTE | 2016-07-18 16:57 | RADRPT ---
Echocardiogram Report Patient Name: PRINCESS DURANT Gender: Male Date: 1935 Study Date: 18-Jul-2016 Access Service Representative: BRENDA Location: I Ref. Physician: HARSHIL POMPA Quality: Adequate Procedures: Transthoracic echocardiogram with complete 2D, M-Mode, and doppler examination. Indications: Congestive Heart Failure. Hypertension. 2D/M Mode Doppler Measurement Value Normal Ranges Measurement Value Normal Ranges AoR Diam MM 2.9 cm AV Peak Slade 0.9 m/sec ACS MM 1.8 cm AV Peak PG 3.1 mmHg LVIDd 2D 4.8 3.5 - 5.6 cm AI Peak PG 69.5 mmHg LVIDs 2D 3.9 2.1 - 4.1 cm AI Peak Slade 4.2 m/sec LVPWd 2D 1.4 0.6 - 1.1 cm AI PHT 572.7 msec IVSd 2D 1.4 0.6 - 1.1 cm LVOT Peak Slade 0.5 m/sec EDV 2D 106.5 cm3 LVOT Peak PG 1.1 mmHg ESV 2D 57.2 cm3 MV E Peak Slade 0.8 m/sec LA Dimen 2D 4.4 2.3 - 4.0 cm MV A Peak Slade 0.4 m/sec MV E/A 2.0 MV Decel Time 110 msec MV Decel [place] 7 MV E/A 2.0 TR Peak Slade 2.7 m/sec TR Peak PG 29.3 mmHg PV Peak Slade 0.7 m/sec PV Peak PG 2.0 mmHg RVSP 32.3 mmHg Findings Left Ventricle: Normal left ventricular cavity size. Mild concentric left ventricular hypertrophy. Moderate global left ventricular systolic dysfunction. Moderate to severe left ventricular systolic dysfunction. Ejection fraction is visually estimated at 30 %. Tissue Doppler/Mitral Doppler indices are consistent with pseudonormalization with mildly elevated left atrial pressure (Stage II diastolic dysfunction), patient could not Valsalva. E/E`=8. Right Ventricle: Normal right ventricular size. Normal right ventricular systolic function. Left Atrium: There is mild enlargement of left atrium. Right Atrium: There is mild enlargement of right atrium. Atrial Septum: Normal atrial septum. Mitral Valve: Mitral valve leaflets appear mildly thickened. Moderate to severe mitral valve regurgitation. Aortic Valve: Aortic cusps appear mildly calcified. Mild aortic valve regurgitation. Tricuspid Valve: Normal appearance of the tricuspid valve. Estimated peak PA systolic pressure 32 mmHg. There is mild tricuspid regurgitation. Pulmonic Valve: There is trace pulmonic regurgitation. Pericardium: Normal pericardium with no significant pericardial effusion. Left pleural effusion seen. Aorta: Normal aortic root. IVC: Normal size and normal respiratory collapse consistent with normal right atrial pressure. Pulmonary Artery: Normal pulmonary artery size. Conclusions 1.Normal left ventricular cavity size. Mild concentric left ventricular hypertrophy. Moderate global left ventricular systolic dysfunction. Moderate to severe left ventricular systolic dysfunction. Ejection fraction is visually estimated at 30 %. Tissue Doppler/Mitral Doppler indices are consistent with pseudonormalization with mildly elevated left atrial pressure (Stage II diastolic dysfunction), patient could not Valsalva. 2.Normal right ventricular size. Normal right ventricular systolic function. 3.Mitral valve leaflets appear mildly thickened. Moderate to severe mitral valve regurgitation. 4.Aortic cusps appear mildly calcified. Mild aortic valve regurgitation. 5.Normal appearance of the tricuspid valve. Estimated peak PA systolic pressure 32 mmHg. There is mild tricuspid regurgitation. 6.Normal pericardium with no significant pericardial effusion. Electronically Signed By: Franklin Andrews 18-Jul-2016 16:56:08 -0700 Patient Name: PRINCESS DURANT Study Date: 18-Jul-2016 [id number]
--- NOTE | 2016-07-18 18:56 | RADRPT ---
PROCEDURE: MRI Brain without contrast. CLINICAL INDICATION: Neurologic deficit. Abnormal CT demonstrating cerebrovascular accident. TECHNIQUE: MRI of the brain was performed with the following sequences obtained: Sagittal, coronal and axial T1-weighted, axial T2-weighted, axial FLAIR, axial diffusion weighted (with ADC map), and coronal GRE. COMPARISON: CT brain 07/17/2016 FINDINGS: The study is limited by patient motion degradation. Abnormal restricted diffusion, hyperintense signal on the diffusion-weighted images, has associated hyperintense FLAIR signal and hypointense T1 signal within the left parietal lobe corresponding to t he hypodensity on the CT and consistent with a subacute ischemic infarct in the posterior division o f the left middle cerebral artery territory. There are some subtle areas of low signal intensity on the gradient echo series within the left parietal cortex corresponding with linear hyperintense T1 signal most consistent with laminar necrosis and / or hemosiderin. No acute hemorrhage is present a nd there is local mass effect only manifested as minimal effacement of the left parietal sulci. The re is no midline shift, herniation or hydrocephalous. The extraaxial spaces are clear of collection s. Prominence of the ventricular system and cerebral sulci is consistent with severe atrophy but ap propriate for the patient's provided age of 80 years. A moderate amount of hyperintense FLAIR signal in the periventricular subcortical white matter is nonspecific but likely the sequela of ships or barges loader ashley small vessel ischemia. No signal alteration is present within the brainstem or cerebellum. The fourth ventricle is midline and the craniocervical junction lesion is intact. The area of the sella is normal. The bony calvarium and skull base are intact. The visualized paranasal sinuses and mastoid air cell s are clear. Physiologic flow voids within the internal carotid and vertebral arteries are maintain ed. RPTAT:HJJR IMPRESSION: 1. Mild restricted diffusion and hyperintense FLAIR signal within the left parietal lobe correspond s to the hypodensity on the CT of 07/17/2016 and represents a subacute ischemic infarct in the poste rior division left middle cerebral artery territory with associated mild local mass effect and anel ar necrosis/hemosiderin in the left parietal cortex. 2. Generalized cerebral atrophy appropriate for the patient's provided age with a moderate amount o f nonspecific cerebral white matter disease most likely chronic small vessel ischemia. Luis Antonio Larkin, Physician Date Time Electronically viewed and signed by Luis Antonio Larkin Physician on 07/18/2016 18:55 JR/
[2016-07-18] MEDS ORDERED: LEVETIRACETAM 250 MG TAB PO SCH (21:00)
--- NOTE | 2016-07-18 21:33 | SP ---
DATE OF PROCEDURE: 07/18/2016 REFERRING PHYSICIAN: Dr. Pepper. Thank you for asking me to see the patient with you. HISTORY OF PRESENT ILLNESS: The patient is an 80-year-old male with decreased mini mental status. TECHNIQUE: EEG done using 10-20 International electrode system with photic stimulation. FINDINGS: Bilateral occipital hemisphere view showed 7 to 6 Hz, medium sized to low amplitude, asym metric, bilateral. Photic stimulation done showed no drive. Some electromyogram artifact is record ed. Sharp waves recorded independently bilaterally. IMPRESSION: This is an abnormal electroencephalogram showing sharp waves on top of generalized slow ing consistent with a history of underlying postictal changes. Followup EEG may be needed if clinic ally indicated. Again, thank you for asking me to see the patient with you. Dictated By: ANA MARÍA SANTIAGO/ASHUTOSH Conf#: [id number] DID#: [id number]
--- NOTE | 2016-07-18 21:59 | CONS ---
DATE OF ADMISSION: 07/17/2016 DATE OF CONSULTATION: 07/18/2016 HISTORY OF PRESENT ILLNESS: Patient is an 80-year-old with underlying end-stage renal disease. Pat ient on dialysis. The patient admitted with decreased mini mental status, possibility of underlying seizure activity. EEG done today with an abnormal electroencephalogram with postictal status. CURRENT MEDICATIONS: Include: 1. Hydrocodone 5/325 mg once a day as needed. 2. Colace 100 mg once a day. 3. Multiple vitamin once a day as needed. 4. Ferrous sulfate 325 mg once a day. 5. Januvia 50 mg once a day. 6. Loperamide 2 mg once a day. 7. Folic acid 2 mg once a day. 8. Nexium 40 mg once a day. 9. Aricept 5 mg once a day. 10. Aspirin 81 mg once a day. 11. Amlodipine 10 mg once a day. PHYSICAL EXAMINATION: GENERAL: On exam today, the patient is alert, awake, looks confused. Can follow simple commands; h owever, difficult for second or third-step commands. CRANIAL NERVES: Cranial nerve II: Pupils equal on both sides, reactive to light. Cranial nerves I II, IV and : Extraocular muscles intact. Cranial nerve V: Equal sensation to face. Cranial ner ve VII: Symmetrical face. Cranial nerve VIII: Decreased hearing bilaterally. Cranial nerve X: E levates palate. Cranial nerve XI: Elevates shoulder 5/5. Cranial nerve XII: With straight tongue . MOTOR: Moving both upper and lower extremities against gravity. Decreased right hand auto tester, 4+/5. Sensation decreased for glove and sock area for light touch and temperature. COORDINATION: [id number] test intact. HEART: Regular rate and rhythm. LUNGS: Equal breath sounds. ABDOMEN: Soft, relaxed, nondistended. No tenderness. ASSESSMENT AND PLAN 1. The patient is an 80-year-old with decreased mini mental status, underlying postictal status wit h abnormal EEG. I am going to start the patient on Keppra 250 mg twice a day and see how the patien t responds to that. Keep the patient under seizure precaution, aspiration precaution, and fall prec aution. 2. Underlying acute encephalopathy, probably secondary to end-stage renal disease. Patient already on dialysis. 3. Keep the patient under deep venous thrombosis prophylaxis as well as decubitus ulcer prophylaxis . Again, thank you for asking me to see the patient with you. Dictated By: ANA MARÍA SANTIAGO/ASHUTOSH Conf#: [id number] DID#: [id number]
[2016-07-19] VITALS (11 sets, daily range): BP systolic 132–150; BP diastolic 62–82; PULSE 57–74; RESP 17–20
[2016-07-19] MEDS: INSULIN ASPART [NOVOLOG] 3 ML PEN SC SCH ×6 (01:00→21:00)
[2016-07-19] MEDS: LEVETIRACETAM IV 250 MG in SOD CHLORIDE 0.9% 100 ML IVPB SCH ×3 (01:29→21:30)
[2016-07-19 07:28] LABS: ADD SCAN DIFF NO
[2016-07-19 07:40] LABS: ABNORMAL IP MESSAGE 1; BASOPHILS % 0.2 % (0.0-2.0); EOSINOPHILS # 0.2 10^3/ul (0.0-0.5); EOSINOPHILS % 3.1 % (0.0-7.0); HEMATOCRIT 26.9 % (42.0-52.0); LYMPHOCYTES # 1.6 10^3/ul (0.8-2.9); LYMPHOCYTES % 31.8 % (15.0-51.0); MEAN CORPUSCULAR HEMOGLOBIN 32.7 pg (29.0-33.0); MEAN CORPUSCULAR HGB CONC 33.5 g/dl (32.0-37.0); MEAN CORPUSCULAR VOLUME 97.8 fl (82.0-101.0); MONOCYTE # 0.4 10^3/ul (0.3-0.9); MONOCYTES % 7.2 % (0.0-11.0); NEUTROPHIL # 2.9 10^3/ul (1.6-7.5); NEUTROPHILS % 57.3 % (39.0-77.0); PLATELET COUNT 99 10^3/UL (140-415); RED BLOOD COUNT 2.75 10^6/ul (4.70-6.10); RED CELL DISTRIBUTION WIDTH 15.1 % (11.5-14.5); WHITE BLOOD COUNT 5.1 10^3/ul (4.8-10.8)
[2016-07-19 08:00] LABS: CALCIUM 8.1 mg/dl (8.4-10.2); CREATININE 6.82 mg/dl (0.61-1.24); POTASSIUM 4.3 mmol/L (3.5-5.1)
[2016-07-19] MEDS: MULTIVIT/CA CARB/B CMPLX/FA TAB PO SCH (09:39)
[2016-07-19] MEDS: DOCUSATE SODIUM 100 MG CAP PO SCH ×3 (09:39→21:00)
[2016-07-19] MEDS: FOLIC ACID 1 MG TAB PO SCH (09:39)
[2016-07-19] MEDS: FERROUS SULFATE (EC) 325 MG TAB PO SCH ×2 (09:39→21:00)
[2016-07-19] MEDS: DONEPEZIL 5 MG TAB PO SCH (09:39)
[2016-07-19] MEDS: AMLODIPINE 10 MG TAB PO SCH (09:39)
--- NOTE | 2016-07-19 14:10 | CONS ---
Date/Time of Note Date/Time of Note DATE: 07/19/16 TIME: 14:08 Assessment/Plan Assessment/Plan Additional Assessment/Plan Congestive heart failure exacerbation Bilateral Pleural Effusion Subacute Ischemic Infarct Hypertension End-stage renal disease on hemodialysis Altered mental state/encephalopathy. Dementia. Anemia. Hemodynamically stable Heart failure clinically compensated Continue Norvasc Continue Coreg Continue Insulin Continue Antibiotics Continue Aricept HD as scheduled Consultation Date/Type/Reason Admit Date/Time July 17, 2016 at 13:41 Initial Consult Date Exam/Review of Systems Vital Signs Vitals Vital Signs Date Time Temp Pulse Resp B/P Pulse Ox O2 Delivery O2 Flow Rate FiO2 07/19/16 12:22 98.6 74 17 150/70 94 07/18/16 20:00 Nasal Cannula 2.0 Intake and Output 07/18/16 07/18/16 07/19/16 15:00 23:00 07:00 Intake Total 50 ml 1020 ml 0 ml Output Total 2500 ml Balance 50 ml -1480 ml 0 ml Exam Constitutional: other (lethargic) Head: atraumatic, normocephalic Respiratory: diminished breath sounds Cardiovascular: regular rate and rhythm Gastrointestinal: nl liver, spleen, non-tender, soft Extremities: other (Trace pedal edema) Results Result Diagram: 07/19/16 0623 07/19/16 0628 Results 24 hrs Laboratory Tests Test 07/18/16 17:13 07/18/16 20:57 07/19/16 01:28 07/19/16 05:30 Bedside Glucose 101 96 75 76 Test 07/19/16 06:23 07/19/16 06:28 07/19/16 07:42 07/19/16 12:23 White Blood Count 5.1 # Red Blood Count 2.75 L Hemoglobin 9.0 L Hematocrit 26.9 L Mean Corpuscular Volume 97.8 Mean Corpuscular Hemoglobin 32.7 Mean Corpuscular Hemoglobin Concent 33.5 Red Cell Distribution Width 15.1 H Platelet Count 99 #L Mean Platelet Volume 12.0 H Neutrophils % 57.3 Lymphocytes % 31.8 Monocytes % 7.2 Eosinophils % 3.1 Basophils % 0.2 Nucleated Red Blood Cells % 0.0 Neutrophils # 2.9 Lymphocytes # 1.6 Monocytes # 0.4 Eosinophils # 0.2 Basophils # 0.0 Nucleated Red Blood Cells # 0.0 Sodium Level 134 L Potassium Level 4.3 Chloride Level 96 L Carbon Dioxide Level 26 Anion Gap 16 # Blood Urea Nitrogen 49 #H Creatinine 6.82 H Glucose Level 81 Calcium Level 8.1 L Bedside Glucose 75 97 Medications Medications Current Medications Acetaminophen 650 mg 650 mg Q6H PRN PO PAIN LEVEL 1-3 OR FEVER; Start 07/17/16 at 18:00 Ceftriaxone Sodium (Rocephin) 50 ml @ 100 mls/hr Q24H IV Last administered on 07/18/16 13:15; Admin Dose 100 MLS/HR; Start 07/18/16 at 14:00 Hydralazine HCl (Apresoline) 10 mg Q4H PRN IV sbp>170; Start 07/17/16 at 18:30 Ondansetron HCl (Zofran Inj) 4 mg Q6H PRN IV NAUSEA AND/OR VOMITING Last administered on 07/18/16 10:03; Admin Dose 4 MG; Start 07/17/16 at 18:30 Hydromorphone HCl (Dilaudid) 0.5 mg Q4H PRN IV PAIN Last administered on 03:20; Admin Dose 0.5 MG; Start 07/17/16 at 19:00 Insulin Aspart NOVOLOG *MILD* ALGORI... Q4 SC ; Start 07/17/16 at 21:00 Dextrose/Sodium Chloride (D5-1/2ns) 1,000 ml @ 40 mls/hr Q24H IV Last administered on 07/18/16 04:14; Admin Dose 40 MLS/HR; Start 07/17/16 at 19:00 Miscellaneous Information 1 ea NOTE XX ; Start 07/17/16 at 19:30 Glucose (Glutose) 15 gm Q15M PRN PO DECREASED GLUCOSE; Start 07/17/16 at 19:30 Glucose (Glutose) 22.5 gm Q15M PRN PO DECREASED GLUCOSE; Start 07/17/16 at 19: 30 Dextrose (D50w Syringe) 25 ml Q15M PRN IV DECREASED GLUCOSE; Start 07/17/16 at 19:30 Dextrose (D50w Syringe) 50 ml Q15M PRN IV DECREASED GLUCOSE; Start 07/17/16 at 19:30 Glucagon (Glucagen) 1 mg Q15M PRN IM DECREASED GLUCOSE; Start 07/17/16 at 19:30 Glucose (Glutose) 15 gm Q15M PRN BUCCAL DECREASED GLUCOSE; Start 07/17/16 at 19 :30 Amlodipine Besylate (Norvasc) 10 mg DAILY PO Last administered on 07/19/16 09: 39; Admin Dose 10 MG; Start 07/18/16 at 09:00 Diphenoxylate HCl/ Atropine (Lomotil) 1 tab DAILY PRN PO DIARRHEA; Start at 09:00 Docusate Sodium (Colace) 100 mg TID PO Last administered on 07/19/16 09:39; Admin Dose 100 MG; Start 07/17/16 at 21:00 Donepezil HCl (Aricept) 5 mg DAILY PO Last administered on 07/19/16 09:39; Admin Dose 5 MG; Start 07/18/16 at 09:00 Ferrous Sulfate (Ferrous Sulfate (Ec)) 325 mg BID PO Last administered on 09:39; Admin Dose 325 MG; Start 07/17/16 at 21:00 Folic Acid (Folic Acid) 1 mg DAILY PO Last administered on 07/19/16 09:39; Admin Dose 1 MG; Start 07/18/16 at 09:00 Acetaminophen/ Hydrocodone Bitart ([place] (5/325)) 1 tab Q6H PRN PO PAIN; Start 07/17/16 at 19:30 Multivit/Ca Carb/ B Cmplx/FA/Prenat (Estelita-Allison) 1 tab DAILY PO Last administered on 07/19/16 09:39; Admin Dose 1 TAB; Start 07/18/16 at 09:00 Carvedilol 3.125 mg 3.125 mg BID PO Last administered on 07/19/16 09:39; Admin Dose 3.125 MG; Start 07/18/16 at 21:00 Levetiracetam/ Sodium Chloride (Keppra Iv/NS) 102.5 ml @ 430 mls/hr Q12 IVPB Last administered on 07/19/16 09:38; Admin Dose 430 MLS/HR; Start 07/19/16 at 00:30 GAUDENCIO FRANKLIN M.D. July 19, 2016 14:10
[2016-07-19] MEDS: CEFTRIAXONE 1 GM/50 ML (PMX) 50 ML IV SCH (15:18)
--- NOTE | 2016-07-19 17:17 | PN ---
Date/Time of Note Date/Time of Note DATE: 07/19/16 TIME: 17:15 Assessment/Plan VTE Prophylaxis VTE Prophylaxis Intervention: other Lines/Catheters IV Catheter Type (from Nrsg): Peripheral IV Assessment/Plan Chief Complaint/Hosp Course cva htn cva ashd plan per neuro and csardio Problems: Subjective 24 Hr Interval Summary Subjective hx not possible: other (more awake and alert) Exam/Review of Systems Vital Signs Vitals Vital Signs Date Time Temp Pulse Resp B/P Pulse Ox O2 Delivery O2 Flow Rate FiO2 07/19/16 16:27 57 07/19/16 15:52 97.7 17 132/62 99 07/19/16 08:00 Nasal Cannula 2.0 Intake and Output 07/18/16 07/18/16 07/19/16 15:00 23:00 07:00 Intake Total 50 ml 1020 ml 0 ml Output Total 2500 ml Balance 50 ml -1480 ml 0 ml Exam Neck: supple Respiratory: clear to auscultation Cardiovascular: regular rate and rhythm Musculoskeletal: nl extremities to inspection Extremities: normal pulses Results Result Diagram: 07/19/16 0623 07/19/16 0628 Results 24 hrs Laboratory Tests Test 07/18/16 20:57 07/19/16 01:28 07/19/16 05:30 07/19/16 06:23 Bedside Glucose 96 75 76 White Blood Count 5.1 # Red Blood Count 2.75 L Hemoglobin 9.0 L Hematocrit 26.9 L Mean Corpuscular Volume 97.8 Mean Corpuscular Hemoglobin 32.7 Mean Corpuscular Hemoglobin Concent 33.5 Red Cell Distribution Width 15.1 H Platelet Count 99 #L Mean Platelet Volume 12.0 H Neutrophils % 57.3 Lymphocytes % 31.8 Monocytes % 7.2 Eosinophils % 3.1 Basophils % 0.2 Nucleated Red Blood Cells % 0.0 Neutrophils # 2.9 Lymphocytes # 1.6 Monocytes # 0.4 Eosinophils # 0.2 Basophils # 0.0 Nucleated Red Blood Cells # 0.0 Test 07/19/16 06:28 07/19/16 07:42 07/19/16 12:23 Sodium Level 134 L Potassium Level 4.3 Chloride Level 96 L Carbon Dioxide Level 26 Anion Gap 16 # Blood Urea Nitrogen 49 #H Creatinine 6.82 H Glucose Level 81 Calcium Level 8.1 L Bedside Glucose 75 97 Medications Medications Current Medications Acetaminophen 650 mg 650 mg Q6H PRN PO PAIN LEVEL 1-3 OR FEVER; Start 07/17/16 at 18:00 Ceftriaxone Sodium (Rocephin) 50 ml @ 100 mls/hr Q24H IV Last administered on 07/19/16 15:18; Admin Dose 100 MLS/HR; Start 07/18/16 at 14:00 Hydralazine HCl (Apresoline) 10 mg Q4H PRN IV sbp>170; Start 07/17/16 at 18:30 Ondansetron HCl (Zofran Inj) 4 mg Q6H PRN IV NAUSEA AND/OR VOMITING Last administered on 07/18/16 10:03; Admin Dose 4 MG; Start 07/17/16 at 18:30 Hydromorphone HCl (Dilaudid) 0.5 mg Q4H PRN IV PAIN Last administered on 03:20; Admin Dose 0.5 MG; Start 07/17/16 at 19:00 Insulin Aspart NOVOLOG *MILD* ALGORI... Q4 SC ; Start 07/17/16 at 21:00 Dextrose/Sodium Chloride (D5-1/2ns) 1,000 ml @ 40 mls/hr Q24H IV Last administered on 07/18/16 04:14; Admin Dose 40 MLS/HR; Start 07/17/16 at 19:00 Miscellaneous Information 1 ea NOTE XX ; Start 07/17/16 at 19:30 Glucose (Glutose) 15 gm Q15M PRN PO DECREASED GLUCOSE; Start 07/17/16 at 19:30 Glucose (Glutose) 22.5 gm Q15M PRN PO DECREASED GLUCOSE; Start 07/17/16 at 19: 30 Dextrose (D50w Syringe) 25 ml Q15M PRN IV DECREASED GLUCOSE; Start 07/17/16 at 19:30 Dextrose (D50w Syringe) 50 ml Q15M PRN IV DECREASED GLUCOSE; Start 07/17/16 at 19:30 Glucagon (Glucagen) 1 mg Q15M PRN IM DECREASED GLUCOSE; Start 07/17/16 at 19:30 Glucose (Glutose) 15 gm Q15M PRN BUCCAL DECREASED GLUCOSE; Start 07/17/16 at 19 :30 Amlodipine Besylate (Norvasc) 10 mg DAILY PO Last administered on 07/19/16 09: 39; Admin Dose 10 MG; Start 07/18/16 at 09:00 Diphenoxylate HCl/ Atropine (Lomotil) 1 tab DAILY PRN PO DIARRHEA; Start at 09:00 Docusate Sodium (Colace) 100 mg TID PO Last administered on 07/19/16 09:39; Admin Dose 100 MG; Start 07/17/16 at 21:00 Donepezil HCl (Aricept) 5 mg DAILY PO Last administered on 07/19/16 09:39; Admin Dose 5 MG; Start 07/18/16 at 09:00 Ferrous Sulfate (Ferrous Sulfate (Ec)) 325 mg BID PO Last administered on 09:39; Admin Dose 325 MG; Start 07/17/16 at 21:00 Folic Acid (Folic Acid) 1 mg DAILY PO Last administered on 07/19/16 09:39; Admin Dose 1 MG; Start 07/18/16 at 09:00 Acetaminophen/ Hydrocodone Bitart ([place] (5/325)) 1 tab Q6H PRN PO PAIN; Start 07/17/16 at 19:30 Multivit/Ca Carb/ B Cmplx/FA/Prenat (Estelita-Allison) 1 tab DAILY PO Last administered on 07/19/16 09:39; Admin Dose 1 TAB; Start 07/18/16 at 09:00 Carvedilol 3.125 mg 3.125 mg BID PO Last administered on 07/19/16 09:39; Admin Dose 3.125 MG; Start 07/18/16 at 21:00 Levetiracetam/ Sodium Chloride (Keppra Iv/NS) 102.5 ml @ 430 mls/hr Q12 IVPB Last administered on 07/19/16 09:38; Admin Dose 430 MLS/HR; Start 07/19/16 at 00:30 KAREN CASTLE MD July 19, 2016 17:16
[2016-07-19] MEDS: DEXTROSE 5%-0.45% NACL 1,000 ML IV SCH (18:27)
--- NOTE | 2016-07-19 18:59 | PN ---
DATE: REFERRING PHYSICIAN: Dr. Castle Thank you for asking me to see the patient. HISTORY OF PRESENT ILLNESS: The patient is an 80-year-old male with past medical history of end-sta ge renal disease on dialysis. The patient missed dialysis for a few days in which he was getting de creased mini mental status, lack of communication. The patient had EEG which showed postictal reno e with the possibility of underlying seizure. CURRENT MEDICATIONS: Which include: 1. Coreg 3.25 mg twice a day. 2. Keppra 250 mg twice a day. 3. Amlodipine 10 mg once a day. 4. Lomotil 1 tablet once a day. 5. Aricept 5 mg once a day. 6. Folic acid 1 mg once a day. 7. Renavite 1 ____ once a day. 8. Colace 100 mg 3 times a day. 9. Ferrous sulfate 325 mg once a day. 10. Zofran 4 mg every 6 hours as needed. 11. IV fluids. 12. Tylenol as needed. PHYSICAL EXAMINATION: GENERAL: On exam today, the patient is alert, awake, and follows simple commands. Looks confused. CRANIAL NERVES: Cranial nerve II: Pupils equal on both sides, reactive to light. Cranial nerves I II, IV, and : Extraocular muscles intact. No nystagmus. Cranial nerve V: Equal sensation to fa ce. Cranial nerve VII: Symmetrical face. Cranial nerve VIII: Decreased hearing bilaterally. [place] Cutter nial nerve IX, X: Elevates palate. Cranial nerve XI: Elevates shoulder 5/5. Cranial nerve XII: With straight tongue. MOTOR: Decreased right hand division toll wire chief, 4+/5. SENSATION: Decreased for glove and sock area for light touch and temperature. COORDINATION: [id number] test intact. HEART: Regular rate and rhythm. LUNGS: Equal breath sounds. ABDOMEN: Soft, relaxed, nondistended. No tenderness. ASSESSMENT AND PLAN: 1. The patient is an 80-year-old with decreased mini mental status with underlying abnormal electro encephalogram with postictal status, possibility of underlying seizure. Will start the patient on K eppra 250 mg twice a day. Because of the renal insufficiency, I will start him on a low dose and se e how the patient responds for that. Keep the patient under seizure precaution, aspiration precauti on, fall precaution. 2. Underlying acute encephalopathy, probably secondary to end-stage renal disease with the patient on dialysis. 3. Keep the patient under deep venous thrombosis prophylaxis as well as decubitus ulcer prophylaxis . 4. End-stage renal disease. The patient on dialysis. Followed by Dr. Castle. Again, thank you for asking me to see the patient with you. Dictated By: ANA MARÍA BRITO MD NA/NTS Conf#: [id number] DID#: [id number] CC: KAREN CASTLE MD;*EndCC*
[2016-07-20] VITALS (21 sets, daily range): BP systolic 108–166; BP diastolic 51–86; PULSE 55–85; RESP 18–20
[2016-07-20] MEDS: INSULIN ASPART [NOVOLOG] 3 ML PEN SC SCH ×6 (01:00→21:00)
[2016-07-20] MEDS: LEVETIRACETAM IV 250 MG in SOD CHLORIDE 0.9% 100 ML IVPB SCH ×2 (08:44→21:00)
[2016-07-20] MEDS: FERROUS SULFATE (EC) 325 MG TAB PO SCH ×2 (08:44→21:00)
[2016-07-20] MEDS: DONEPEZIL 5 MG TAB PO SCH (08:45)
[2016-07-20] MEDS: MULTIVIT/CA CARB/B CMPLX/FA TAB PO SCH (08:45)
[2016-07-20] MEDS: AMLODIPINE 10 MG TAB PO SCH (08:45)
[2016-07-20] MEDS: FOLIC ACID 1 MG TAB PO SCH (08:45)
[2016-07-20] MEDS: DOCUSATE SODIUM 100 MG CAP PO SCH ×3 (08:51→21:00)
--- NOTE | 2016-07-20 14:20 | RADRPT ---
Vent Rate: 88 bpm RR Interval: 0 msec TX Interval: 192 msec QRS Duration: 126 msec QT Interval: 402 msec QTC Interval: 486 msec P-R-T [place]: 56 - 6 - 50 degrees Normal sinus rhythm Nonspecific intraventricular block volrate criteria for LVH Abnormal ECG Electronically Signed By: Nelson Gibbons [id number]
[2016-07-20] MEDS: CEFTRIAXONE 1 GM/50 ML (PMX) 50 ML IV SCH (15:33)
--- NOTE | 2016-07-20 18:22 | PN ---
Date/Time of Note Date/Time of Note DATE: 07/20/16 TIME: 18:21 Assessment/Plan VTE Prophylaxis VTE Prophylaxis Intervention: other Lines/Catheters IV Catheter Type (from Nrsg): Peripheral IV Assessment/Plan Chief Complaint/Hosp Course cva htn cva ashd plan per neuro anD CARDIO HD Problems: Subjective 24 Hr Interval Summary Subjective hx not possible: other (REFUSING LABS ) Exam/Review of Systems Vital Signs Vitals Vital Signs Date Time Temp Pulse Resp B/P Pulse Ox O2 Delivery O2 Flow Rate FiO2 07/20/16 16:25 97.9 73 18 130/86 100 07/19/16 20:00 Nasal Cannula 2.0 Intake and Output 07/19/16 07/19/16 07/20/16 15:00 23:00 07:00 Intake Total 102.5 ml 730 ml 120 ml Balance 102.5 ml 730 ml 120 ml Exam Cardiovascular: regular rate and rhythm Gastrointestinal: soft Musculoskeletal: nl extremities to inspection Extremities: normal pulses Neurological: ONLINE MARKETING SPECIALIST II-XII intact Results Result Diagram: 07/19/16 0623 07/19/16 0628 Results 24 hrs Laboratory Tests Test 07/19/16 21:27 07/20/16 05:24 07/20/16 17:13 Bedside Glucose 86 82 152 Medications Medications Current Medications Acetaminophen 650 mg 650 mg Q6H PRN PO PAIN LEVEL 1-3 OR FEVER; Start 07/17/16 at 18:00 Ceftriaxone Sodium (Rocephin) 50 ml @ 100 mls/hr Q24H IV Last administered on 07/20/16 15:33; Admin Dose 100 MLS/HR; Start 07/18/16 at 14:00 Hydralazine HCl (Apresoline) 10 mg Q4H PRN IV sbp>170; Start 07/17/16 at 18:30 Ondansetron HCl (Zofran Inj) 4 mg Q6H PRN IV NAUSEA AND/OR VOMITING Last administered on 07/18/16 10:03; Admin Dose 4 MG; Start 07/17/16 at 18:30 Hydromorphone HCl (Dilaudid) 0.5 mg Q4H PRN IV PAIN Last administered on 03:20; Admin Dose 0.5 MG; Start 07/17/16 at 19:00 Insulin Aspart NOVOLOG *MILD* ALGORI... Q4 SC ; Start 07/17/16 at 21:00 Dextrose/Sodium Chloride (D5-1/2ns) 1,000 ml @ 40 mls/hr Q24H IV Last administered on 07/19/16 18:27; Admin Dose 40 MLS/HR; Start 07/17/16 at 19:00 Miscellaneous Information 1 ea NOTE XX ; Start 07/17/16 at 19:30 Glucose (Glutose) 15 gm Q15M PRN PO DECREASED GLUCOSE; Start 07/17/16 at 19:30 Glucose (Glutose) 22.5 gm Q15M PRN PO DECREASED GLUCOSE; Start 07/17/16 at 19: 30 Dextrose (D50w Syringe) 25 ml Q15M PRN IV DECREASED GLUCOSE; Start 07/17/16 at 19:30 Dextrose (D50w Syringe) 50 ml Q15M PRN IV DECREASED GLUCOSE; Start 07/17/16 at 19:30 Glucagon (Glucagen) 1 mg Q15M PRN IM DECREASED GLUCOSE; Start 07/17/16 at 19:30 Glucose (Glutose) 15 gm Q15M PRN BUCCAL DECREASED GLUCOSE; Start 07/17/16 at 19 :30 Amlodipine Besylate (Norvasc) 10 mg DAILY PO Last administered on 07/20/16 08: 45; Admin Dose 10 MG; Start 07/18/16 at 09:00 Diphenoxylate HCl/ Atropine (Lomotil) 1 tab DAILY PRN PO DIARRHEA; Start at 09:00 Docusate Sodium (Colace) 100 mg TID PO Last administered on 07/20/16 08:51; Admin Dose 100 MG; Start 07/17/16 at 21:00 Donepezil HCl (Aricept) 5 mg DAILY PO Last administered on 07/20/16 08:45; Admin Dose 5 MG; Start 07/18/16 at 09:00 Ferrous Sulfate (Ferrous Sulfate (Ec)) 325 mg BID PO Last administered on 08:44; Admin Dose 325 MG; Start 07/17/16 at 21:00 Folic Acid (Folic Acid) 1 mg DAILY PO Last administered on 07/20/16 08:45; Admin Dose 1 MG; Start 07/18/16 at 09:00 Acetaminophen/ Hydrocodone Bitart ([place] (5/325)) 1 tab Q6H PRN PO PAIN; Start 07/17/16 at 19:30 Multivit/Ca Carb/ B Cmplx/FA/Prenat (Estelita-Allison) 1 tab DAILY PO Last administered on 07/20/16 08:45; Admin Dose 1 TAB; Start 07/18/16 at 09:00 Carvedilol 3.125 mg 3.125 mg BID PO Last administered on 07/20/16 08:46; Admin Dose 3.125 MG; Start 07/18/16 at 21:00 Levetiracetam/ Sodium Chloride (Keppra Iv/NS) 102.5 ml @ 430 mls/hr Q12 IVPB Last administered on 07/20/16 08:44; Admin Dose 430 MLS/HR; Start 07/19/16 at 00:30 KAREN CASTLE MD July 20, 2016 18:22
[2016-07-20] MEDS: DEXTROSE 5%-0.45% NACL 1,000 ML IV SCH (19:00)
--- NOTE | 2016-07-20 19:39 | CONS ---
Date/Time of Note Date/Time of Note DATE: 07/20/16 TIME: 19:31 Assessment/Plan Assessment/Plan Chief Complaint/Hosp Course IMPRESSION: 1. Congestive heart failure exacerbation by chest x-ray, systolic acute on chronic by echo this admit with reading of EF 30% 2. Hypertension, uncontrolled. 3. Abnormal electrocardiogram with nonspecific ST-T wave abnormalities. Assess for acute coronary syndrome. 4. End-stage renal disease on hemodialysis, status post 1-week of missed dialysis sessions. 5. Altered mental state/encephalopathy. 6. History of dementia. 7. Anemia. 8. Coagulopathy, mild. 9. Positive troponin-minimal with no sig uptrend 10.PAF-now back in sr 11.BRadycardia to 38 Recc: -Continue low dose BB as tolerated and will add low dose ACEI afterload reduction for treatment of cmy -Blood thinner with systemic anticoag or antiplatelet if cannot tolerate full dose anti-coag for AF when/if ok with neuro given acute cva -EP eval for possible PPM -Continue norvasc/keppra Problems: Consultation Date/Type/Reason Admit Date/Time July 17, 2016 at 13:41 Initial Consult Date 07/17/2016 Type of Consultation: Cardiology Reason for Consultation CHF/bradycardia/PAF Referring Provider: KAREN CASTLE Exam/Review of Systems Vital Signs Vitals Vital Signs Date Time Temp Pulse Resp B/P Pulse Ox O2 Delivery O2 Flow Rate FiO2 07/20/16 18:35 68 07/20/16 16:25 97.9 18 130/86 100 07/19/16 20:00 Nasal Cannula 2.0 Intake and Output 07/19/16 07/19/16 07/20/16 14:59 22:59 06:59 Intake Total 102.5 ml 730 ml 120 ml Balance 102.5 ml 730 ml 120 ml Exam Review of Systems: CONSTITUTIONAL: No fevers, chills. PULMONARY: No sob CARDIOVASCULAR: No chest pain/palpitations GASTROINTESTINAL: No nausea/vomiting. GENITOURINARY: No hematuria/dysuria. MUSCULOSKELETAL: No myagias/arthalgias. PSYCHIATRIC: The patient denies depression. NEUROLOGIC: No weakness Constitutional: alert Psych: no complaints Head: normocephalic ENMT: mucosa pink and moist Neck: jvd, supple Respiratory: diminished breath sounds Cardiovascular: regular rate and rhythm Gastrointestinal: non-tender, soft Musculoskeletal: muscle tone (normal) Extremities: edema (none) Neurological: lethargic Results Result Diagram: 07/19/16 0623 07/19/16 0628 Results 24 hrs Laboratory Tests Test 07/19/16 21:27 07/20/16 05:24 07/20/16 17:13 Bedside Glucose 86 82 152 Medications Medications Current Medications Acetaminophen 650 mg 650 mg Q6H PRN PO PAIN LEVEL 1-3 OR FEVER; Start 07/17/16 at 18:00 Ceftriaxone Sodium (Rocephin) 50 ml @ 100 mls/hr Q24H IV Last administered on 07/20/16 15:33; Admin Dose 100 MLS/HR; Start 07/18/16 at 14:00 Hydralazine HCl (Apresoline) 10 mg Q4H PRN IV sbp>170; Start 07/17/16 at 18:30 Ondansetron HCl (Zofran Inj) 4 mg Q6H PRN IV NAUSEA AND/OR VOMITING Last administered on 07/18/16 10:03; Admin Dose 4 MG; Start 07/17/16 at 18:30 Hydromorphone HCl (Dilaudid) 0.5 mg Q4H PRN IV PAIN Last administered on 03:20; Admin Dose 0.5 MG; Start 07/17/16 at 19:00 Insulin Aspart NOVOLOG *MILD* ALGORI... Q4 SC ; Start 07/17/16 at 21:00 Dextrose/Sodium Chloride (D5-1/2ns) 1,000 ml @ 40 mls/hr Q24H IV Last administered on 07/19/16 18:27; Admin Dose 40 MLS/HR; Start 07/17/16 at 19:00 Miscellaneous Information 1 ea NOTE XX ; Start 07/17/16 at 19:30 Glucose (Glutose) 15 gm Q15M PRN PO DECREASED GLUCOSE; Start 07/17/16 at 19:30 Glucose (Glutose) 22.5 gm Q15M PRN PO DECREASED GLUCOSE; Start 07/17/16 at 19: 30 Dextrose (D50w Syringe) 25 ml Q15M PRN IV DECREASED GLUCOSE; Start 07/17/16 at 19:30 Dextrose (D50w Syringe) 50 ml Q15M PRN IV DECREASED GLUCOSE; Start 07/17/16 at 19:30 Glucagon (Glucagen) 1 mg Q15M PRN IM DECREASED GLUCOSE; Start 07/17/16 at 19:30 Glucose (Glutose) 15 gm Q15M PRN BUCCAL DECREASED GLUCOSE; Start 07/17/16 at 19 :30 Amlodipine Besylate (Norvasc) 10 mg DAILY PO Last administered on 07/20/16 08: 45; Admin Dose 10 MG; Start 07/18/16 at 09:00 Diphenoxylate HCl/ Atropine (Lomotil) 1 tab DAILY PRN PO DIARRHEA; Start at 09:00 Docusate Sodium (Colace) 100 mg TID PO Last administered on 07/20/16 08:51; Admin Dose 100 MG; Start 07/17/16 at 21:00 Donepezil HCl (Aricept) 5 mg DAILY PO Last administered on 07/20/16 08:45; Admin Dose 5 MG; Start 07/18/16 at 09:00 Ferrous Sulfate (Ferrous Sulfate (Ec)) 325 mg BID PO Last administered on 08:44; Admin Dose 325 MG; Start 07/17/16 at 21:00 Folic Acid (Folic Acid) 1 mg DAILY PO Last administered on 07/20/16 08:45; Admin Dose 1 MG; Start 07/18/16 at 09:00 Acetaminophen/ Hydrocodone Bitart ([place] (5/325)) 1 tab Q6H PRN PO PAIN; Start 07/17/16 at 19:30 Multivit/Ca Carb/ B Cmplx/FA/Prenat (Estelita-Allison) 1 tab DAILY PO Last administered on 07/20/16 08:45; Admin Dose 1 TAB; Start 07/18/16 at 09:00 Carvedilol 3.125 mg 3.125 mg BID PO Last administered on 07/20/16 08:46; Admin Dose 3.125 MG; Start 07/18/16 at 21:00 Levetiracetam/ Sodium Chloride (Keppra Iv/NS) 102.5 ml @ 430 mls/hr Q12 IVPB Last administered on 07/20/16 08:44; Admin Dose 430 MLS/HR; Start 07/19/16 at 00:30 HARSHIL POMPA July 20, 2016 19:39
[2016-07-21] VITALS (11 sets, daily range): BP systolic 143–166; BP diastolic 69–79; PULSE 67–74; RESP 18–19
[2016-07-21] MEDS: INSULIN ASPART [NOVOLOG] 3 ML PEN SC SCH ×6 (01:00→20:56)
--- NOTE | 2016-07-21 07:21 | CONS ---
DATE OF ADMISSION: 07/17/2016 DATE OF CONSULTATION: REFERRING PHYSICIAN: Dr. Pepper HISTORY OF PRESENT ILLNESS: The patient is an 80-year-old with a past medical history of end-stage renal disease on dialysis for which the patient missed the dialysis with decreased mini mental statu s with abnormal electroencephalogram. MEDICATIONS: The patient is on 1. Keppra 250 mg twice a day. 2. Coreg 3.125 mg once a day. 3. Amlodipine 10 mg once a day. 4. Lomotil 1 tablet once a day. 5. Aricept 5 mg once a day. 6. Folic acid 1 mg once a day. 7. Colace 100 mg once a day. 8. Ferrous sulfate 325 mg once a day. 9. Zofran 4 mg every 4 hours. 10. Tylenol as needed. PHYSICAL EXAMINATION: GENERAL: On exam today, the patient is alert, awake, oriented to time, place, and person. Normal s peech. Can follow simple commands; however, difficult to second or third-step commands. CRANIAL NERVES: Cranial nerve II: Pupils equal on both sides, reactive to light. Cranial nerves I II, IV, and : Extraocular muscles intact without nystagmus. Cranial nerve V: Equal sensation to face. Cranial nerve VII: Symmetrical face. Cranial nerve VIII: Decreased hearing bilaterally. Cranial nerves IX and X: Elevates palate. Cranial nerve XI: Elevates shoulder 5/5. Cranial nerve XII: With straight tongue. 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 Sensation decreased for glove and sock area for light touc h and temperature. COORDINATION: [id number] test intact. HEART: Regular rate and rhythm. LUNGS: Equal breath sounds. ABDOMEN: Soft, relaxed, nondistended. No tenderness. ASSESSMENT AND PLAN: 1. The patient is an 80-year-old status post abnormal electroencephalogram with the possibility of underlying seizure activity. We will start the patient on Keppra 250 mg twice a day. Follow up the patient with seizure precautions, aspiration precaution. 2. Acute encephalopathy, probably secondary to end-stage renal disease as the patient missed multip le dialysis. 3. Deep venous thrombosis prophylaxis as well as decubitus ulcer prophylaxis. Again, thank you, Dr. Pepper, for asking me to see the patient with you. Dictated By: ANA MARÍA SANTIAGO/ASHUTOSH Conf#: [id number] [facility]#: [id number]
[2016-07-21] MEDS: FOLIC ACID 1 MG TAB PO SCH (08:54)
[2016-07-21] MEDS: FERROUS SULFATE (EC) 325 MG TAB PO SCH ×2 (08:54→20:06)
[2016-07-21] MEDS: MULTIVIT/CA CARB/B CMPLX/FA TAB PO SCH (08:54)
[2016-07-21] MEDS: LEVETIRACETAM IV 250 MG in SOD CHLORIDE 0.9% 100 ML IVPB SCH ×2 (08:54→20:06)
[2016-07-21] MEDS: AMLODIPINE 10 MG TAB PO SCH (08:55)
[2016-07-21] MEDS: DONEPEZIL 5 MG TAB PO SCH (08:55)
[2016-07-21] MEDS: BENAZEPRIL 5 MG TAB PO SCH (08:56)
[2016-07-21] MEDS: DOCUSATE SODIUM 100 MG CAP PO SCH ×3 (08:56→20:06)
--- NOTE | 2016-07-21 10:17 | CONS ---
Date/Time of Note Date/Time of Note DATE: 07/21/16 TIME: 10:15 Assessment/Plan Assessment/Plan Additional Assessment/Plan 1. Congestive heart failure exacerbation by chest x-ray, systolic acute on chronic by echo this admit with reading of EF 30%- stable, remove fluid with HD 2. Hypertension, uncontrolled- Rx to gial. 3. Abnormal electrocardiogram with nonspecific ST-T wave abnormalities. Assess for acute coronary syndrome. 4. End-stage renal disease on hemodialysis, status post 1-week of missed dialysis sessions. 5. Altered mental state/encephalopathy. 6. History of dementia. 7. Anemia. 8. Coagulopathy, mild. 9. Positive troponin-minimal with no sig uptrend - med rx now 10.PAF-now back in sr 11.Bradycardia to 38 - with Hd - now in 70s - no class I indication for pacer given BP stable with bradycardia. Consultation Date/Type/Reason Admit Date/Time July 17, 2016 at 13:41 Initial Consult Date Type of Consultation: Cardiology Referring Provider: KAREN CASTLE MD 24 HR Interval Summary Free Text/Dictation .Bradycardia to 38 - with Hd - now in 70s - no class I indication for pacer given BP stable with bradycardia. ROS: No fever, no chills, no nausea, no vomiting, no diarrhea/constipation No recent weight changes No chest pain, no PND, no orthopnea No dizziness, blurred vision No thirst, no heat or cold intolerance Exam/Review of Systems Vital Signs Vitals Vital Signs Date Time Temp Pulse Resp B/P Pulse Ox O2 Delivery O2 Flow Rate FiO2 07/21/16 08:15 67 07/21/16 07:50 98.8 18 164/79 98 07/20/16 20:00 Nasal Cannula 07/19/16 20:00 2.0 Intake and Output 07/20/16 07/20/16 07/21/16 14:59 22:59 06:59 Intake Total 1350 ml 400 ml Output Total 3000 ml Balance -1650 ml 400 ml Exam General: WN/WD/NAD, AOx 3 HEENT: Unicetric/atraumatic/EOMI (follow commands) NECK: JVD elevated, no thyromegaly Lymph: no lymphadenopathy HEART: regular with no S3, II/ systolic murmur at apex, L HD access catheter LUNGS: Coarse sounds ABD: soft, NT, ND, +BS : Intact Neuro: non focal SKIN: chronic changes EXT: trace edema Results Result Diagram: 07/19/16 0623 07/19/16 0628 Results 24 hrs Laboratory Tests Test 07/20/16 17:13 07/20/16 20:37 07/21/16 05:33 07/21/16 08:52 Bedside Glucose 152 171 88 Thyroid Stimulating Hormone (TSH) 2.110 Medications Medications Current Medications Acetaminophen 650 mg 650 mg Q6H PRN PO PAIN LEVEL 1-3 OR FEVER; Start 07/17/16 at 18:00 Ceftriaxone Sodium (Rocephin) 50 ml @ 100 mls/hr Q24H IV Last administered on 07/20/16 15:33; Admin Dose 100 MLS/HR; Start 07/18/16 at 14:00 Hydralazine HCl (Apresoline) 10 mg Q4H PRN IV sbp>170; Start 07/17/16 at 18:30 Ondansetron HCl (Zofran Inj) 4 mg Q6H PRN IV NAUSEA AND/OR VOMITING Last administered on 07/18/16 10:03; Admin Dose 4 MG; Start 07/17/16 at 18:30 Hydromorphone HCl (Dilaudid) 0.5 mg Q4H PRN IV PAIN Last administered on 03:20; Admin Dose 0.5 MG; Start 07/17/16 at 19:00 Insulin Aspart NOVOLOG *MILD* ALGORI... Q4 SC ; Start 07/17/16 at 21:00 Dextrose/Sodium Chloride (D5-1/2ns) 1,000 ml @ 40 mls/hr Q24H IV Last administered on 07/20/16 19:00; Admin Dose 40 MLS/HR; Start 07/17/16 at 19:00 Miscellaneous Information 1 ea NOTE XX ; Start 07/17/16 at 19:30 Glucose (Glutose) 15 gm Q15M PRN PO DECREASED GLUCOSE; Start 07/17/16 at 19:30 Glucose (Glutose) 22.5 gm Q15M PRN PO DECREASED GLUCOSE; Start 07/17/16 at 19: 30 Dextrose (D50w Syringe) 25 ml Q15M PRN IV DECREASED GLUCOSE; Start 07/17/16 at 19:30 Dextrose (D50w Syringe) 50 ml Q15M PRN IV DECREASED GLUCOSE; Start 07/17/16 at 19:30 Glucagon (Glucagen) 1 mg Q15M PRN IM DECREASED GLUCOSE; Start 07/17/16 at 19:30 Glucose (Glutose) 15 gm Q15M PRN BUCCAL DECREASED GLUCOSE; Start 07/17/16 at 19 :30 Amlodipine Besylate (Norvasc) 10 mg DAILY PO Last administered on 07/21/16 08: 55; Admin Dose 10 MG; Start 07/18/16 at 09:00 Diphenoxylate HCl/ Atropine (Lomotil) 1 tab DAILY PRN PO DIARRHEA; Start at 09:00 Docusate Sodium (Colace) 100 mg TID PO Last administered on 07/20/16 08:51; Admin Dose 100 MG; Start 07/17/16 at 21:00 Donepezil HCl (Aricept) 5 mg DAILY PO Last administered on 07/21/16 08:55; Admin Dose 5 MG; Start 07/18/16 at 09:00 Ferrous Sulfate (Ferrous Sulfate (Ec)) 325 mg BID PO Last administered on 08:54; Admin Dose 325 MG; Start 07/17/16 at 21:00 Folic Acid (Folic Acid) 1 mg DAILY PO Last administered on 07/21/16 08:54; Admin Dose 1 MG; Start 07/18/16 at 09:00 Acetaminophen/ Hydrocodone Bitart ([place] (5/325)) 1 tab Q6H PRN PO PAIN; Start 07/17/16 at 19:30 Multivit/Ca Carb/ B Cmplx/FA/Prenat (Estelita-Allison) 1 tab DAILY PO Last administered on 07/21/16 08:54; Admin Dose 1 TAB; Start 07/18/16 at 09:00 Carvedilol 3.125 mg 3.125 mg BID PO Last administered on 07/21/16 08:56; Admin Dose 3.125 MG; Start 07/18/16 at 21:00 Levetiracetam/ Sodium Chloride (Keppra Iv/NS) 102.5 ml @ 430 mls/hr Q12 IVPB Last administered on 07/21/16 08:54; Admin Dose 430 MLS/HR; Start 07/19/16 at 00:30 Benazepril HCl (Lotensin) 5 mg DAILY PO Last administered on 07/21/16t 08:56; Admin Dose 5 MG; Start 07/21/16 at 09:00 ANDREAS LOPEZ MD July 21, 2016 10:17
[2016-07-21] MEDS: CEFTRIAXONE 1 GM/50 ML (PMX) 50 ML IV SCH (14:13)
[2016-07-21] MEDS: DEXTROSE 5%-0.45% NACL 1,000 ML IV SCH (19:00)
--- NOTE | 2016-07-21 19:20 | PN ---
Date/Time of Note Date/Time of Note DATE: 07/21/16 TIME: 19:18 Assessment/Plan VTE Prophylaxis VTE Prophylaxis Intervention: other Lines/Catheters IV Catheter Type (from Nrsg): Peripheral IV Assessment/Plan Chief Complaint/Hosp Course cva htn cva ashd chf plan per neuro and cardio HD Problems: Subjective 24 Hr Interval Summary Respiratory: no complaints Cardiovascular: no complaints Exam/Review of Systems Vital Signs Vitals Vital Signs Date Time Temp Pulse Resp B/P Pulse Ox O2 Delivery O2 Flow Rate FiO2 07/21/16 16:51 67 07/21/16 15:53 98.3 18 147/71 98 07/20/16 20:00 Nasal Cannula 07/19/16 20:00 2.0 Intake and Output 07/20/16 07/20/16 07/21/16 15:00 23:00 07:00 Intake Total 500 ml 850 ml 400 ml Output Total 3000 ml Balance -2500 ml 850 ml 400 ml Exam Neck: supple Respiratory: clear to auscultation Cardiovascular: regular rate and rhythm Gastrointestinal: soft Extremities: normal pulses Results Result Diagram: 07/19/16 0623 07/19/16 0628 Results 24 hrs Laboratory Tests Test 07/20/16 20:37 07/21/16 05:33 07/21/16 08:52 07/21/16 11:53 Bedside Glucose 171 88 108 Thyroid Stimulating Hormone (TSH) 2.110 Medications Medications Current Medications Acetaminophen 650 mg 650 mg Q6H PRN PO PAIN LEVEL 1-3 OR FEVER; Start 07/17/16 at 18:00 Ceftriaxone Sodium (Rocephin) 50 ml @ 100 mls/hr Q24H IV Last administered on 07/21/16 14:13; Admin Dose 100 MLS/HR; Start 07/18/16 at 14:00 Hydralazine HCl (Apresoline) 10 mg Q4H PRN IV sbp>170; Start 07/17/16 at 18:30 Ondansetron HCl (Zofran Inj) 4 mg Q6H PRN IV NAUSEA AND/OR VOMITING Last administered on 07/18/16 10:03; Admin Dose 4 MG; Start 07/17/16 at 18:30 Hydromorphone HCl (Dilaudid) 0.5 mg Q4H PRN IV PAIN Last administered on 03:20; Admin Dose 0.5 MG; Start 07/17/16 at 19:00 Insulin Aspart NOVOLOG *MILD* ALGORI... Q4 SC ; Start 07/17/16 at 21:00 Dextrose/Sodium Chloride (D5-1/2ns) 1,000 ml @ 40 mls/hr Q24H IV Last administered on 07/20/16 19:00; Admin Dose 40 MLS/HR; Start 07/17/16 at 19:00 Miscellaneous Information 1 ea NOTE XX ; Start 07/17/16 at 19:30 Glucose (Glutose) 15 gm Q15M PRN PO DECREASED GLUCOSE; Start 07/17/16 at 19:30 Glucose (Glutose) 22.5 gm Q15M PRN PO DECREASED GLUCOSE; Start 07/17/16 at 19: 30 Dextrose (D50w Syringe) 25 ml Q15M PRN IV DECREASED GLUCOSE; Start 07/17/16 at 19:30 Dextrose (D50w Syringe) 50 ml Q15M PRN IV DECREASED GLUCOSE; Start 07/17/16 at 19:30 Glucagon (Glucagen) 1 mg Q15M PRN IM DECREASED GLUCOSE; Start 07/17/16 at 19:30 Glucose (Glutose) 15 gm Q15M PRN BUCCAL DECREASED GLUCOSE; Start 07/17/16 at 19 :30 Amlodipine Besylate (Norvasc) 10 mg DAILY PO Last administered on 07/21/16 08: 55; Admin Dose 10 MG; Start 07/18/16 at 09:00 Diphenoxylate HCl/ Atropine (Lomotil) 1 tab DAILY PRN PO DIARRHEA; Start at 09:00 Docusate Sodium (Colace) 100 mg TID PO Last administered on 07/20/16 08:51; Admin Dose 100 MG; Start 07/17/16 at 21:00 Donepezil HCl (Aricept) 5 mg DAILY PO Last administered on 07/21/16 08:55; Admin Dose 5 MG; Start 07/18/16 at 09:00 Ferrous Sulfate (Ferrous Sulfate (Ec)) 325 mg BID PO Last administered on 08:54; Admin Dose 325 MG; Start 07/17/16 at 21:00 Folic Acid (Folic Acid) 1 mg DAILY PO Last administered on 07/21/16 08:54; Admin Dose 1 MG; Start 07/18/16 at 09:00 Acetaminophen/ Hydrocodone Bitart ([place] (5/325)) 1 tab Q6H PRN PO PAIN; Start 07/17/16 at 19:30 Multivit/Ca Carb/ B Cmplx/FA/Prenat (Estelita-Allison) 1 tab DAILY PO Last administered on 07/21/16 08:54; Admin Dose 1 TAB; Start 07/18/16 at 09:00 Carvedilol 3.125 mg 3.125 mg BID PO Last administered on 07/21/16 08:56; Admin Dose 3.125 MG; Start 07/18/16 at 21:00 Levetiracetam/ Sodium Chloride (Keppra Iv/NS) 102.5 ml @ 430 mls/hr Q12 IVPB Last administered on 07/21/16 08:54; Admin Dose 430 MLS/HR; Start 07/19/16 at 00:30 Benazepril HCl (Lotensin) 5 mg DAILY PO Last administered on 07/21/16 08:56; Admin Dose 5 MG; Start 07/21/16 at 09:00 KAREN CASTLE MD July 21, 2016 19:20
[2016-07-21] MEDS: HYDROmorphONE 1 MG/ML SYG IV PRN (20:05)
[2016-07-22] VITALS (20 sets, daily range): BP systolic 110–177; BP diastolic 68–88; PULSE 54–78; RESP 17–20
[2016-07-22] MEDS: INSULIN ASPART [NOVOLOG] 3 ML PEN SC SCH ×6 (01:00→21:00)
[2016-07-22] MEDS: HYDROmorphONE 1 MG/ML SYG IV PRN ×2 (04:28→20:53)
[2016-07-22] MEDS: DEXTROSE 5%-0.45% NACL 1,000 ML IV SCH (06:10)
[2016-07-22] MEDS: DOCUSATE SODIUM 100 MG CAP PO SCH ×3 (08:30→21:00)
[2016-07-22] MEDS: FERROUS SULFATE (EC) 325 MG TAB PO SCH ×2 (08:30→21:01)
[2016-07-22] MEDS: FOLIC ACID 1 MG TAB PO SCH (08:30)
[2016-07-22] MEDS: DONEPEZIL 5 MG TAB PO SCH (08:30)
[2016-07-22] MEDS: MULTIVIT/CA CARB/B CMPLX/FA TAB PO SCH (08:30)
[2016-07-22] MEDS: AMLODIPINE 10 MG TAB PO SCH (08:31)
[2016-07-22] MEDS: BENAZEPRIL 5 MG TAB PO SCH (08:31)
[2016-07-22] MEDS: LEVETIRACETAM IV 250 MG in SOD CHLORIDE 0.9% 100 ML IVPB SCH ×2 (08:33→21:00)
[2016-07-22] MEDS: CEFTRIAXONE 1 GM/50 ML (PMX) 50 ML IV SCH (13:31)
--- NOTE | 2016-07-22 19:27 | CONS ---
Date/Time of Note Date/Time of Note DATE: 07/22/16 TIME: 19:23 Assessment/Plan Assessment/Plan Chief Complaint/Hosp Course IMPRESSION: 1. Congestive heart failure exacerbation by chest x-ray, systolic acute on chronic by echo this admit with reading of EF 30% 2. Hypertension, uncontrolled. 3. Abnormal electrocardiogram with nonspecific ST-T wave abnormalities. Assess for acute coronary syndrome. 4. End-stage renal disease on hemodialysis, status post 1-week of missed dialysis sessions. 5. Altered mental state/encephalopathy. 6. History of dementia. 7. Anemia. 8. Coagulopathy, mild. 9. Positive troponin-minimal with no sig uptrend 10.PAF-now back in sr 11.BRadycardia to 38 Recc: -Continue low dose BB as tolerated and will increase low dose ACEI afterload reduction for treatment of cmy -Blood thinner with systemic anticoag or antiplatelet if cannot tolerate full dose anti-coag for AF when/if ok with neuro given acute cva -EP eval for PPM but does not feel patient has indication at this time. If has recurrent AF with RVR will discuss as given PAF and jw it will be difficult to control HR. -Continue norvasc/keppra Problems: Consultation Date/Type/Reason Admit Date/Time July 17, 2016 at 13:41 Initial Consult Date 07/17/2016 Type of Consultation: Cardiology Reason for Consultation cardiac arrythmia Referring Provider: KAREN CASTLE MD Exam/Review of Systems Vital Signs Vitals Vital Signs Date Time Temp Pulse Resp B/P Pulse Ox O2 Delivery O2 Flow Rate FiO2 07/22/16 16:00 61 07/22/16 15:51 98.0 18 161/81 100 07/21/16 20:00 Nasal Cannula 2.0 Intake and Output 07/21/16 07/21/16 07/22/16 15:00 23:00 07:00 Intake Total 300 ml Balance 300 ml Exam Review of Systems: CONSTITUTIONAL: No fevers, chills. PULMONARY: No sob CARDIOVASCULAR: No chest pain/palpitations GASTROINTESTINAL: No nausea/vomiting. GENITOURINARY: No hematuria/dysuria. MUSCULOSKELETAL: No myagias/arthalgias. PSYCHIATRIC: The patient denies depression. NEUROLOGIC: mild generalized weakness Constitutional: alert Psych: no complaints Head: normocephalic ENMT: mucosa pink and moist Neck: jvd, supple Respiratory: diminished breath sounds Cardiovascular: regular rate and rhythm Gastrointestinal: non-tender, soft Musculoskeletal: muscle tone (normal) Extremities: edema (none) Neurological: other (No focal deficits) Results Result Diagram: 07/19/1662207/19/16 0628 Results 24 hrs Laboratory Tests Test 07/21/16 20:09 07/22/16 01:37 07/22/16 06:07 07/22/16 08:28 Bedside Glucose 107 107 83 89 Medications Medications Current Medications Acetaminophen 650 mg 650 mg Q6H PRN PO PAIN LEVEL 1-3 OR FEVER; Start 07/17/16 at 18:00 Ceftriaxone Sodium (Rocephin) 50 ml @ 100 mls/hr Q24H IV Last administered on 07/22/16 13:31; Admin Dose 100 MLS/HR; Start 07/18/16 at 14:00 Hydralazine HCl (Apresoline) 10 mg Q4H PRN IV sbp>170; Start 07/17/16 at 18:30 Ondansetron HCl (Zofran Inj) 4 mg Q6H PRN IV NAUSEA AND/OR VOMITING Last administered on 07/18/16 10:03; Admin Dose 4 MG; Start 07/17/16 at 18:30 Hydromorphone HCl (Dilaudid) 0.5 mg Q4H PRN IV PAIN Last administered on 04:28; Admin Dose 0.5 MG; Start 07/17/16 at 19:00 Insulin Aspart NOVOLOG *MILD* ALGORI... Q4 SC ; Start 07/17/16 at 21:00 Dextrose/Sodium Chloride (D5-1/2ns) 1,000 ml @ 40 mls/hr Q24H IV Last administered on 07/22/16 06:10; Admin Dose 40 MLS/HR; Start 07/17/16 at 19:00 Miscellaneous Information 1 ea NOTE XX ; Start 07/17/16 at 19:30 Glucose (Glutose) 15 gm Q15M PRN PO DECREASED GLUCOSE; Start 07/17/16 at 19:30 Glucose (Glutose) 22.5 gm Q15M PRN PO DECREASED GLUCOSE; Start 07/17/16 at 19: 30 Dextrose (D50w Syringe) 25 ml Q15M PRN IV DECREASED GLUCOSE; Start 07/17/16 at 19:30 Dextrose (D50w Syringe) 50 ml Q15M PRN IV DECREASED GLUCOSE; Start 07/17/16 at 19:30 Glucagon (Glucagen) 1 mg Q15M PRN IM DECREASED GLUCOSE; Start 07/17/16 at 19:30 Glucose (Glutose) 15 gm Q15M PRN BUCCAL DECREASED GLUCOSE; Start 07/17/16 at 19 :30 Amlodipine Besylate (Norvasc) 10 mg DAILY PO Last administered on 07/21/16 08: 55; Admin Dose 10 MG; Start 07/18/16 at 09:00 Diphenoxylate HCl/ Atropine (Lomotil) 1 tab DAILY PRN PO DIARRHEA; Start at 09:00 Docusate Sodium (Colace) 100 mg TID PO Last administered on 07/22/16 13:31; Admin Dose 100 MG; Start 07/17/16 at 21:00 Donepezil HCl (Aricept) 5 mg DAILY PO Last administered on 07/22/16 08:30; Admin Dose 5 MG; Start 07/18/16 at 09:00 Ferrous Sulfate (Ferrous Sulfate (Ec)) 325 mg BID PO Last administered on 08:30; Admin Dose 325 MG; Start 07/17/16 at 21:00 Folic Acid (Folic Acid) 1 mg DAILY PO Last administered on 07/22/16 08:30; Admin Dose 1 MG; Start 07/18/16 at 09:00 Acetaminophen/ Hydrocodone Bitart ([place] (5/325)) 1 tab Q6H PRN PO PAIN Last administered on 07/22/16 01:54; Admin Dose 1 TAB; Start 07/17/16 at 19:30 Multivit/Ca Carb/ B Cmplx/FA/Prenat (Estelita-Allison) 1 tab DAILY PO Last administered on 07/22/16 08:30; Admin Dose 1 TAB; Start 07/18/16 at 09:00 Carvedilol 3.125 mg 3.125 mg BID PO Last administered on 07/21/16 20:06; Admin Dose 3.125 MG; Start 07/18/16 at 21:00 Levetiracetam/ Sodium Chloride (Keppra Iv/NS) 102.5 ml @ 430 mls/hr Q12 IVPB Last administered on 07/22/16 08:33; Admin Dose 430 MLS/HR; Start 07/19/16 at 00:30 Benazepril HCl (Lotensin) 5 mg DAILY PO Last administered on 07/21/16 08:56; Admin Dose 5 MG; Start 07/21/16 at 09:00 HARSHIL POMPA July 22, 2016 19:27
--- NOTE | 2016-07-22 20:05 | PN ---
Date/Time of Note Date/Time of Note DATE: 07/22/16 TIME: 20:03 Assessment/Plan VTE Prophylaxis VTE Prophylaxis Intervention: other Lines/Catheters IV Catheter Type (from Nrsg): Peripheral IV Assessment/Plan Chief Complaint/Hosp Course cva htn cva ashd chf REFUSING TREATMENT plan per neuro and cardio HD Problems: Subjective 24 Hr Interval Summary Subjective hx not possible: other (ON DIALYSIS REFUSING LABS AND DIET RECM.) Exam/Review of Systems Vital Signs Vitals Vital Signs Date Time Temp Pulse Resp B/P Pulse Ox O2 Delivery O2 Flow Rate FiO2 07/22/16 16:00 61 07/22/16 15:51 98.0 18 161/81 100 07/21/16 20:00 Nasal Cannula 2.0 Intake and Output 07/21/16 07/21/16 07/22/16 14:59 22:59 06:59 Intake Total 300 ml Balance 300 ml Exam Cardiovascular: regular rate and rhythm Gastrointestinal: soft Musculoskeletal: nl extremities to inspection Extremities: normal pulses Results Result Diagram: 07/19/1662207/19/16627 Results 24 hrs Laboratory Tests Test 07/21/16 20:09 07/22/16 01:37 07/22/16 06:07 07/22/16 08:28 Bedside Glucose 107 107 83 89 Medications Medications Current Medications Acetaminophen 650 mg 650 mg Q6H PRN PO PAIN LEVEL 1-3 OR FEVER; Start 07/17/16 at 18:00 Ceftriaxone Sodium (Rocephin) 50 ml @ 100 mls/hr Q24H IV Last administered on 07/22/16 13:31; Admin Dose 100 MLS/HR; Start 07/18/16 at 14:00 Hydralazine HCl (Apresoline) 10 mg Q4H PRN IV sbp>170; Start 07/17/16 at 18:30 Ondansetron HCl (Zofran Inj) 4 mg Q6H PRN IV NAUSEA AND/OR VOMITING Last administered on 07/18/16 10:03; Admin Dose 4 MG; Start 07/17/16 at 18:30 Hydromorphone HCl (Dilaudid) 0.5 mg Q4H PRN IV PAIN Last administered on 04:28; Admin Dose 0.5 MG; Start 07/17/16 at 19:00 Insulin Aspart NOVOLOG *MILD* ALGORI... Q4 SC ; Start 07/17/16 at 21:00 Dextrose/Sodium Chloride (D5-1/2ns) 1,000 ml @ 40 mls/hr Q24H IV Last administered on 07/22/16 06:10; Admin Dose 40 MLS/HR; Start 07/17/16 at 19:00 Miscellaneous Information 1 ea NOTE XX ; Start 07/17/16 at 19:30 Glucose (Glutose) 15 gm Q15M PRN PO DECREASED GLUCOSE; Start 07/17/16 at 19:30 Glucose (Glutose) 22.5 gm Q15M PRN PO DECREASED GLUCOSE; Start 07/17/16 at 19: 30 Dextrose (D50w Syringe) 25 ml Q15M PRN IV DECREASED GLUCOSE; Start 07/17/16 at 19:30 Dextrose (D50w Syringe) 50 ml Q15M PRN IV DECREASED GLUCOSE; Start 07/17/16 at 19:30 Glucagon (Glucagen) 1 mg Q15M PRN IM DECREASED GLUCOSE; Start 07/17/16 at 19:30 Glucose (Glutose) 15 gm Q15M PRN BUCCAL DECREASED GLUCOSE; Start 07/17/16 at 19 :30 Amlodipine Besylate (Norvasc) 10 mg DAILY PO Last administered on 07/21/16 08: 55; Admin Dose 10 MG; Start 07/18/16 at 09:00 Diphenoxylate HCl/ Atropine (Lomotil) 1 tab DAILY PRN PO DIARRHEA; Start at 09:00 Docusate Sodium (Colace) 100 mg TID PO Last administered on 07/22/16 13:31; Admin Dose 100 MG; Start 07/17/16 at 21:00 Donepezil HCl (Aricept) 5 mg DAILY PO Last administered on 07/22/16 08:30; Admin Dose 5 MG; Start 07/18/16 at 09:00 Ferrous Sulfate (Ferrous Sulfate (Ec)) 325 mg BID PO Last administered on 08:30; Admin Dose 325 MG; Start 07/17/16 at 21:00 Folic Acid (Folic Acid) 1 mg DAILY PO Last administered on 07/22/16 08:30; Admin Dose 1 MG; Start 07/18/16 at 09:00 Acetaminophen/ Hydrocodone Bitart ([place] (5/325)) 1 tab Q6H PRN PO PAIN Last administered on 07/22/16 01:54; Admin Dose 1 TAB; Start 07/17/16 at 19:30 Multivit/Ca Carb/ B Cmplx/FA/Prenat (Estelita-Allison) 1 tab DAILY PO Last administered on 07/22/16 08:30; Admin Dose 1 TAB; Start 07/18/16 at 09:00 Carvedilol 3.125 mg 3.125 mg BID PO Last administered on 07/21/16 20:06; Admin Dose 3.125 MG; Start 07/18/16 at 21:00 Levetiracetam/ Sodium Chloride (Keppra Iv/NS) 102.5 ml @ 430 mls/hr Q12 IVPB Last administered on 07/22/16 08:33; Admin Dose 430 MLS/HR; Start 07/19/16 at 00:30 Benazepril HCl (Lotensin) 10 mg DAILY PO ; Start 07/23/16 at 09:00 KAREN CASTLE MD July 22, 2016 20:05
[2016-07-23] VITALS (13 sets, daily range): BP systolic 116–162; BP diastolic 58–80; PULSE 55–66; RESP 16–20
[2016-07-23] MEDS: hydrALAzine 20 MG INJ IV PRN ×2 (00:13→06:19)
[2016-07-23] MEDS: HYDROmorphONE 1 MG/ML SYG IV PRN ×2 (00:14→06:20)
[2016-07-23] MEDS: INSULIN ASPART [NOVOLOG] 3 ML PEN SC SCH ×6 (00:26→20:58)
[2016-07-23] MEDS: DOCUSATE SODIUM 100 MG CAP PO SCH ×3 (08:31→20:56)
[2016-07-23] MEDS: BENAZEPRIL 10 MG TAB PO SCH (08:32)
[2016-07-23] MEDS: FOLIC ACID 1 MG TAB PO SCH (08:32)
[2016-07-23] MEDS: MULTIVIT/CA CARB/B CMPLX/FA TAB PO SCH (08:32)
[2016-07-23] MEDS: FERROUS SULFATE (EC) 325 MG TAB PO SCH ×2 (08:32→20:56)
[2016-07-23] MEDS: AMLODIPINE 10 MG TAB PO SCH (08:32)
[2016-07-23] MEDS: DONEPEZIL 5 MG TAB PO SCH (08:32)
[2016-07-23] MEDS: LEVETIRACETAM IV 250 MG in SOD CHLORIDE 0.9% 100 ML IVPB SCH ×2 (08:36→20:55)
[2016-07-23] MEDS: CEFTRIAXONE 1 GM/50 ML (PMX) 50 ML IV SCH (13:32)
[2016-07-23] MEDS: DEXTROSE 5%-0.45% NACL 1,000 ML IV SCH (13:34)
--- NOTE | 2016-07-23 19:56 | PN ---
Date/Time of Note Date/Time of Note DATE: 07/23/16 TIME: 19:55 Assessment/Plan VTE Prophylaxis VTE Prophylaxis Intervention: other Lines/Catheters IV Catheter Type (from Nrsg): Peripheral IV Assessment/Plan Chief Complaint/Hosp Course cva better htn cva ashd chf better REFUSING TREATMENT plan per neuro and cardio HD po diet pt ot Problems: Subjective 24 Hr Interval Summary Subjective hx not possible: other (refusing labs) Exam/Review of Systems Vital Signs Vitals Vital Signs Date Time Temp Pulse Resp B/P Pulse Ox O2 Delivery O2 Flow Rate FiO2 07/23/16 16:33 65 07/23/16 16:23 98.3 20 119/60 98 07/23/16 07:04 Nasal Cannula 2.0 Intake and Output 07/22/16 07/22/16 07/23/16 15:00 23:00 07:00 Intake Total 652.5 ml 510 ml Output Total 2500 ml Balance -1847.5 ml 510 ml Exam Neck: supple Respiratory: clear to auscultation Cardiovascular: regular rate and rhythm Gastrointestinal: bowel sounds (+), soft Extremities: No edema Results Result Diagram: 07/19/1662207/19/1628 Results 24 hrs Laboratory Tests Test 07/22/16 21:02 07/23/16 06:16 07/23/16 11:43 07/23/16 17:11 Bedside Glucose 99 83 132 142 Medications Medications Current Medications Acetaminophen 650 mg 650 mg Q6H PRN PO PAIN LEVEL 1-3 OR FEVER; Start 07/17/16 at 18:00 Ceftriaxone Sodium (Rocephin) 50 ml @ 100 mls/hr Q24H IV Last administered on 07/23/16 13:32; Admin Dose 100 MLS/HR; Start 07/18/16 at 14:00 Hydralazine HCl (Apresoline) 10 mg Q4H PRN IV sbp>170 Last administered on 07/23 06:19; Admin Dose 10 MG; Start 07/17/16 at 18:30 Ondansetron HCl (Zofran Inj) 4 mg Q6H PRN IV NAUSEA AND/OR VOMITING Last administered on 07/18/16 10:03; Admin Dose 4 MG; Start 07/17/16 at 18:30 Hydromorphone HCl (Dilaudid) 0.5 mg Q4H PRN IV PAIN Last administered on 06:20; Admin Dose 0.5 MG; Start 07/17/16 at 19:00 Insulin Aspart NOVOLOG *MILD* ALGORI... Q4 SC ; Start 07/17/16 at 21:00 Dextrose/Sodium Chloride (D5-1/2ns) 1,000 ml @ 40 mls/hr Q24H IV Last administered on 07/23/16 13:34; Admin Dose 40 MLS/HR; Start 07/17/16 at 19:00 Miscellaneous Information 1 ea NOTE XX ; Start 07/17/16 at 19:30 Glucose (Glutose) 15 gm Q15M PRN PO DECREASED GLUCOSE; Start 07/17/16 at 19:30 Glucose (Glutose) 22.5 gm Q15M PRN PO DECREASED GLUCOSE; Start 07/17/16 at 19: 30 Dextrose (D50w Syringe) 25 ml Q15M PRN IV DECREASED GLUCOSE; Start 07/17/16 at 19:30 Dextrose (D50w Syringe) 50 ml Q15M PRN IV DECREASED GLUCOSE; Start 07/17/16 at 19:30 Glucagon (Glucagen) 1 mg Q15M PRN IM DECREASED GLUCOSE; Start 07/17/16 at 19:30 Glucose (Glutose) 15 gm Q15M PRN BUCCAL DECREASED GLUCOSE; Start 07/17/16 at 19 :30 Amlodipine Besylate (Norvasc) 10 mg DAILY PO Last administered on 07/23/16 08: 32; Admin Dose 10 MG; Start 07/18/16 at 09:00 Diphenoxylate HCl/ Atropine (Lomotil) 1 tab DAILY PRN PO DIARRHEA Last administered on 07/22/16 21:31; Admin Dose 1 TAB; Start 07/18/16 at 09:00 Docusate Sodium (Colace) 100 mg TID PO Last administered on 07/23/16 13:32; Admin Dose 100 MG; Start 07/17/16 at 21:00 Donepezil HCl (Aricept) 5 mg DAILY PO Last administered on 07/23/16 08:32; Admin Dose 5 MG; Start 07/18/16 at 09:00 Ferrous Sulfate (Ferrous Sulfate (Ec)) 325 mg BID PO Last administered on 08:32; Admin Dose 325 MG; Start 07/17/16 at 21:00 Folic Acid (Folic Acid) 1 mg DAILY PO Last administered on 07/23/16 08:32; Admin Dose 1 MG; Start 07/18/16 at 09:00 Acetaminophen/ Hydrocodone Bitart ([place] (5/325)) 1 tab Q6H PRN PO PAIN Last administered on 07/22/16 01:54; Admin Dose 1 TAB; Start 07/17/16 at 19:30 Multivit/Ca Carb/ B Cmplx/FA/Prenat (Estelita-Allison) 1 tab DAILY PO Last administered on 07/23/16 08:32; Admin Dose 1 TAB; Start 07/18/16 at 09:00 Carvedilol 3.125 mg 3.125 mg BID PO Last administered on 07/23/16 08:33; Admin Dose 3.125 MG; Start 07/18/16 at 21:00 Levetiracetam/ Sodium Chloride (Keppra Iv/NS) 102.5 ml @ 430 mls/hr Q12 IVPB Last administered on 07/23/16 08:36; Admin Dose 430 MLS/HR; Start 07/19/16 at 00:30 Benazepril HCl (Lotensin) 10 mg DAILY PO Last administered on 07/23/16 08:32; Admin Dose 10 MG; Start 07/23/16 at 09:00 KAREN CASTLE MD July 23, 2016 19:56
--- NOTE | 2016-07-23 20:18 | CONS ---
Date/Time of Note Date/Time of Note DATE: 07/23/16 TIME: 20:14 Assessment/Plan Assessment/Plan Chief Complaint/Hosp Course IMPRESSION: 1. Congestive heart failure exacerbation by chest x-ray, systolic acute on chronic by echo this admit with reading of EF 30% 2. Hypertension, uncontrolled. 3. Abnormal electrocardiogram with nonspecific ST-T wave abnormalities. Assess for acute coronary syndrome. 4. End-stage renal disease on hemodialysis, status post 1-week of missed dialysis sessions. 5. Altered mental state/encephalopathy. 6. History of dementia. 7. Anemia. 8. Coagulopathy, mild. 9. Positive troponin-minimal with no sig uptrend 10.PAF-now back in sr 11.BRadycardia to 40 today Recc: -Continue low dose BB as tolerated and will increase low dose ACEI afterload reduction for treatment of cmy -Blood thinner with systemic anticoag or antiplatelet if cannot tolerate full dose anti-coag for AF when/if ok with neuro given acute cva -EP eval for PPM but does not feel patient has indication at this time. If has recurrent AF with RVR will discuss as given PAF and jw it will be difficult to control HR. -Continue norvasc/keppra Problems: Consultation Date/Type/Reason Admit Date/Time July 17, 2016 at 13:41 Initial Consult Date 07/17/2016 Type of Consultation: Cardiology Reason for Consultation BRadycardia Referring Provider: KAREN CASTLE MD Exam/Review of Systems Vital Signs Vitals Vital Signs Date Time Temp Pulse Resp B/P Pulse Ox O2 Delivery O2 Flow Rate FiO2 07/23/16 20:11 97.8 72 16 141/68 99 07/23/16 07:04 Nasal Cannula 2.0 Intake and Output 07/22/16 07/22/16 07/23/16 15:00 23:00 07:00 Intake Total 652.5 ml 510 ml Output Total 2500 ml Balance -1847.5 ml 510 ml Exam Review of Systems: CONSTITUTIONAL: No fevers, chills. PULMONARY: No sob CARDIOVASCULAR: No chest pain/palpitations GASTROINTESTINAL: No nausea/vomiting. GENITOURINARY: No hematuria/dysuria. MUSCULOSKELETAL: No myagias/arthalgias. PSYCHIATRIC: The patient denies depression. NEUROLOGIC: No weakness Constitutional: alert Psych: no complaints Head: normocephalic ENMT: mucosa pink and moist Neck: jvd (8 cm water), supple Respiratory: diminished breath sounds Cardiovascular: regular rate and rhythm Gastrointestinal: non-tender, soft Musculoskeletal: muscle tone (normal) Extremities: edema (none) Results Result Diagram: 07/19/16 0623 07/19/16 0628 Results 24 hrs Laboratory Tests Test 07/22/16 21:02 07/23/16 06:16 07/23/16 11:43 07/23/16 17:11 Bedside Glucose 99 83 132 142 Medications Medications Current Medications Acetaminophen 650 mg 650 mg Q6H PRN PO PAIN LEVEL 1-3 OR FEVER; Start 07/17/16 at 18:00 Ceftriaxone Sodium (Rocephin) 50 ml @ 100 mls/hr Q24H IV Last administered on 07/23/16 13:32; Admin Dose 100 MLS/HR; Start 07/18/16 at 14:00 Hydralazine HCl (Apresoline) 10 mg Q4H PRN IV sbp>170 Last administered on 07/23 06:19; Admin Dose 10 MG; Start 07/17/16 at 18:30 Ondansetron HCl (Zofran Inj) 4 mg Q6H PRN IV NAUSEA AND/OR VOMITING Last administered on 07/18/16 10:03; Admin Dose 4 MG; Start 07/17/16 at 18:30 Hydromorphone HCl (Dilaudid) 0.5 mg Q4H PRN IV PAIN Last administered on 06:20; Admin Dose 0.5 MG; Start 07/17/16 at 19:00 Insulin Aspart NOVOLOG *MILD* ALGORI... Q4 SC ; Start 07/17/16 at 21:00 Dextrose/Sodium Chloride (D5-1/2ns) 1,000 ml @ 40 mls/hr Q24H IV Last administered on 07/23/16 13:34; Admin Dose 40 MLS/HR; Start 07/17/16 at 19:00 Miscellaneous Information 1 ea NOTE XX ; Start 07/17/16 at 19:30 Glucose (Glutose) 15 gm Q15M PRN PO DECREASED GLUCOSE; Start 07/17/16 at 19:30 Glucose (Glutose) 22.5 gm Q15M PRN PO DECREASED GLUCOSE; Start 07/17/16 at 19: 30 Dextrose (D50w Syringe) 25 ml Q15M PRN IV DECREASED GLUCOSE; Start 07/17/16 at 19:30 Dextrose (D50w Syringe) 50 ml Q15M PRN IV DECREASED GLUCOSE; Start 07/17/16 at 19:30 Glucagon (Glucagen) 1 mg Q15M PRN IM DECREASED GLUCOSE; Start 07/17/16 at 19:30 Glucose (Glutose) 15 gm Q15M PRN BUCCAL DECREASED GLUCOSE; Start 07/17/16 at 19 :30 Amlodipine Besylate (Norvasc) 10 mg DAILY PO Last administered on 07/23/16 08: 32; Admin Dose 10 MG; Start 07/18/16 at 09:00 Diphenoxylate HCl/ Atropine (Lomotil) 1 tab DAILY PRN PO DIARRHEA Last administered on 07/22/16 21:31; Admin Dose 1 TAB; Start 07/18/16 at 09:00 Docusate Sodium (Colace) 100 mg TID PO Last administered on 07/23/16 13:32; Admin Dose 100 MG; Start 07/17/16 at 21:00 Donepezil HCl (Aricept) 5 mg DAILY PO Last administered on 07/23/16 08:32; Admin Dose 5 MG; Start 07/18/16 at 09:00 Ferrous Sulfate (Ferrous Sulfate (Ec)) 325 mg BID PO Last administered on 08:32; Admin Dose 325 MG; Start 07/17/16 at 21:00 Folic Acid (Folic Acid) 1 mg DAILY PO Last administered on 07/23/16 08:32; Admin Dose 1 MG; Start 07/18/16 at 09:00 Acetaminophen/ Hydrocodone Bitart ([place] (5/325)) 1 tab Q6H PRN PO PAIN Last administered on 07/22/16 01:54; Admin Dose 1 TAB; Start 07/17/16 at 19:30 Multivit/Ca Carb/ B Cmplx/FA/Prenat (Estelita-Allison) 1 tab DAILY PO Last administered on 07/23/16 08:32; Admin Dose 1 TAB; Start 07/18/16 at 09:00 Carvedilol 3.125 mg 3.125 mg BID PO Last administered on 07/23/16 08:33; Admin Dose 3.125 MG; Start 07/18/16 at 21:00 Levetiracetam/ Sodium Chloride (Keppra Iv/NS) 102.5 ml @ 430 mls/hr Q12 IVPB Last administered on 07/23/16 08:36; Admin Dose 430 MLS/HR; Start 07/19/16 at 00:30 Benazepril HCl (Lotensin) 10 mg DAILY PO Last administered on 07/23/16 08:32; Admin Dose 10 MG; Start 07/23/16 at 09:00 HARSHIL POMPA July 23, 2016 20:18
[2016-07-24] VITALS (17 sets, daily range): BP systolic 115–163; BP diastolic 64–80; PULSE 62–69; RESP 16–19
[2016-07-24] MEDS: INSULIN ASPART [NOVOLOG] 3 ML PEN SC SCH ×4 (01:00→13:00)
[2016-07-24] MEDS: LEVETIRACETAM IV 250 MG in SOD CHLORIDE 0.9% 100 ML IVPB SCH (09:00)
[2016-07-24] MEDS: DOCUSATE SODIUM 100 MG CAP PO SCH ×2 (09:00→13:00)
[2016-07-24] MEDS: BENAZEPRIL 10 MG TAB PO SCH (10:27)
[2016-07-24] MEDS: AMLODIPINE 10 MG TAB PO SCH (10:27)
[2016-07-24] MEDS: DONEPEZIL 5 MG TAB PO SCH (10:28)
[2016-07-24] MEDS: MULTIVIT/CA CARB/B CMPLX/FA TAB PO SCH (10:28)
[2016-07-24] MEDS: FERROUS SULFATE (EC) 325 MG TAB PO SCH (10:28)
[2016-07-24] MEDS: FOLIC ACID 1 MG TAB PO SCH (10:28)
--- NOTE | 2016-07-24 11:01 | PDOCDIS ---
Discharge Instructions CONDITION Patient Condition: Serious ACTIVITY: Activity Restrictions: Slowly Increase Activity FOLLOW UP/APPOINTMENTS Appointments none DANNY CRAWLEY July 24, 2016 11:01
[2016-07-24] MEDS ORDERED: CARV3.1260 PO (11:05)
[2016-07-24] MEDS ORDERED: BENA10TA48 PO (11:05)
[2016-07-24] MEDS: CEFTRIAXONE 1 GM/50 ML (PMX) 50 ML IV SCH (13:51)
== END 2016-07-24 14:45 | DRG 64 ==
LOC: E/R 11:40 → MS4 13:41
PROVIDERS: ADMIT Internal Medicine Nephrology; ATTEND Internal Medicine Nephrology
PROC: 5A1D60Z (ICD-10-PCS; principal; 2016-07-18)
DX: I63.9 Cerebral infarction, unspecified (principal); G93.40 Encephalopathy, unspecified; J18.9 Pneumonia, unspecified organism; I50.43 Acute on chronic combined systolic (congestive) and diastolic (congestive) heart failure; D68.9 Coagulation defect, unspecified; L89.151 Pressure ulcer of sacral region, stage 1; N18.6 End stage renal disease; F03.90 Unspecified dementia, unspecified severity, without behavioral disturbance, psychotic disturbance, mood disturbance, and anxiety; I13.2 Hypertensive heart and chronic kidney disease with heart failure and with stage 5 chronic kidney disease, or end stage renal disease; N39.0 Urinary tract infection, site not specified; I20.0 Unstable angina; E11.22 Type 2 diabetes mellitus with diabetic chronic kidney disease; F17.200 Nicotine dependence, unspecified, uncomplicated; E11.9 Type 2 diabetes mellitus without complications; I44.7 Left bundle-branch block, unspecified; Z91.15 Patient's noncompliance with renal dialysis; E78.00 Pure hypercholesterolemia, unspecified; D63.1 Anemia in chronic kidney disease; Z99.2 Dependence on renal dialysis; Z79.84 Long term (current) use of oral hypoglycemic drugs; R56.9 Unspecified convulsions; G94 Other disorders of brain in diseases classified elsewhere; I48.0 Paroxysmal atrial fibrillation
CPT/HCPCS: 36415; 70450; 70551; 71010; 80048; 80053; 80061; 81001; 81003; 82140; 82550; 82553; 82962; 83605; 83880; 84443; 84484; 85025; 85610; 85730; 87081; 87086; 90935; 92526; 92610; 93005; 93306; 95819; 96365; 96375; J0360; J0696; J1170; J1644; J1815; J1953; J2060; J2270; J2405; J7042

== ENCOUNTER 2016-12-07 09:24 | Inpatient (IN) | END 2016-12-11 18:17 | DRG 640 | DX: E87.5 Hyperkalemia (principal); N18.6 End stage renal disease; I12.0 Hypertensive chronic kidney disease with stage 5 chronic kidney disease or end stage renal disease; E11.22 Type 2 diabetes mellitus with diabetic chronic kidney disease; N18.5 Chronic kidney disease, stage 5; E83.51 Hypocalcemia; Z99.2 Dependence on renal dialysis; Z91.15 Patient's noncompliance with renal dialysis ==